=== PATIENT | female | born 1960 | race Caucasian/White ===

== ENCOUNTER 2016-04-20 14:53 | Inpatient (IN) | payer OTHER ==
--- NOTE | ~2016-04-20 | CN ---
Consultation Report [facility] [address] [place]. [address] NAME: CHARLIE MEZA : 60 STATUS : ADM IN [facility]#: [id number] AGE: 55 ADM/REG DATE : 04/20/16 MR#: [id number] REPORT SERV DATE: 04/20/16 DICTATED BY: STEFFI WELLS DATE: 04/20/16 REPORT STATUS : Draft TRANSCRIBED BY: MODMarielena DATE: 04/20/16 CONSULTATION DATE OF CONSULTATION: 04/20/2016 TIME: 1700 hours. Seen in the ER. 1830 hours. One hour critical care time. HISTORY OF PRESENT ILLNESS: Ms. Meza is a 55-year-old white female with a history of end- stage renal disease on hemodialysis, who presented today with increasing shortness of breath. She presented to the ER with increasing respiratory problems. She has some symptoms of nausea, vomiting, chills, and fever. No chest pain. She says she has had the flu recently. She is . Previous smoking history. No alcohol history. Has a history of COPD with a past medical history of hypertension, seizures, CVA, renal failure on dialysis, pancreatitis, anxiety, type 2 diabetes, thyroid disease. She has had a status post cholecystectomy, hysterectomy, and left BKA. ALLERGIES: HER ALLERGIES TO INCLUDE SULFA AND MEPERIDINE. HOME MEDICATIONS: Albuterol, amlodipine 10, hydrocodone/APAP 10/325, Keppra 250, losartan 100, Pamelor 25 which is nortriptyline, omeprazole 40, and Zofran. I do not see any anti- diabetic medications here at this time. PAST MEDICAL HISTORY: The patient does have non-insulin diabetes mellitus as well as hypothyroidism, diabetic neuropathy, diastolic heart failure. Has had previous C. diff colitis. Apparently, she is on insulin sliding scale at home. PHYSICAL EXAMINATION: VITAL SIGNS: Currently, blood pressure was 165/84, pulse 110, respiratory rate in the 30s to 40s, temperature 97.4. GENERAL: The patient is anxious-appearing female wearing BiPAP. HEENT: Head is normocephalic. Sclerae and conjunctivae are clear. Right internal jugular line. CHEST: Rhonchi throughout the right lung with wheezing. CARDIAC: S1 and S2. Tachycardic. Left lung slightly diminished. ABDOMEN: Soft and nontender. No masses. EXTREMITIES: No clubbing or cyanosis; however, she has BKA on the left. NEUROLOGIC: Grossly intact. The patient is conversant. LABORATORY DATA: Show a BNP of greater than 5000. Electrolyte panel is pending. H and H shows hemoglobin 11.9 and 36.7, white count 4900, platelet count 132,000 with 8 polys, 81 bands. She has four metamyelocytes. Platelet count was 132,000. PTT 33.5, INR 1.5. Chest x-ray shows large infiltrate on the right side. Arterial blood gas showed a pH 7.40, pCO2 of 31, pO2 of 64 on 80%. Consultation Report [address] [place]. [address] NAME: CHARLIE MEZA : 60 STATUS : ADM IN [facility]#: [id number] AGE: 55 ADM/REG DATE : 04/20/16 MR#: [id number] REPORT SERV DATE: 04/20/16 DICTATED BY: STEFFI WELLS DATE: 04/20/16 REPORT STATUS : Draft TRANSCRIBED BY: NIKOLAY DATE: 04/20/16 IMPRESSION: 1. Hypoxic respiratory failure. 2. Sepsis and severe pneumonia. 3. End-stage renal disease. 4. Peripheral vascular disease. 5. Hypothyroidism. 6. Hemodialysis dependent. 7. Non-insulin dependent diabetes mellitus. PLAN: She will require intubation and mechanical ventilation. Continue antibiotics. Monitor counts. She will be dialyzed in the morning. PROCEDURE: Inpatient intubation. INDICATION: For hypoxic respiratory failure. Pre-oxygenated 100% oxygen monitored by blood pressure, EKG, and pulse oximetry. 12 mL of Diprivan given for sedation. A 7.5 endotracheal tube passed under direct vision to 23 cm. Tube seen to enter between cords, confirmed by end-tidal CO2 monitor. Good breath sounds bilaterally. Sat 97%. Post chest x ray ordered. RP/MODL Steffi Wells M.D. / [id number] CC: Saroj Montiel M.D.
--- NOTE | ~2016-04-20 | CN ---
Consultation Report [facility] [address] [place]. [address] NAME: CHARLIE MEZA : 60 STATUS : ADM IN [facility]#: [id number] AGE: 55 ADM/REG DATE : 04/20/16 MR#: [id number] REPORT SERV DATE: 05/14/16 DICTATED BY: ARAVIND DUNNE DATE: 05/14/16 REPORT STATUS : Draft TRANSCRIBED BY: MODL DATE: 05/14/16 CONSULTATION REPORT DATE OF CONSULTATION: 05/14/2016 REASON FOR CONSULTATION: Dysphagia. HISTORY OF PRESENT ILLNESS: Ms. Meza is a 55-year-old female admitted on 04/20/2016 for dyspnea and shortness of breath. She has a history of end-stage renal disease, on hemodialysis through [facility]. She has found to have Streptococcus pneumoniae as well as influenza A. She has had progressive weakness and she subsequently developed respiratory failure to the point where she required intubation. She was recently extubated and then transferred to the floor. She had a bedside swallow study, which she failed with delayed swallow with decreased laryngeal elevation and nonproductive cough, highly suspicious for some severe aspiration. No prior problems with voice or swallowing issues prior to admission to the hospital. PAST MEDICAL HISTORY: Recurrent C. diff diarrhea; end-stage renal disease, dialysis dependent; type 2 diabetes; gastroparesis; hypertension; pancreatitis; peripheral vascular disease, status post below-knee amputation; cholecystectomy; hysterectomy; CVA; CHF; hypothyroidism; chronic pain; and chronic nausea. SOCIAL HISTORY: Disabled. No tobacco, alcohol, or illicit drug use. ALLERGIES: SULFA AND DEMEROL. PHYSICAL EXAMINATION: GENERAL: The patient is an ill appearing, cachectic white female alert and cooperative. She has a very breathy quality to her voice. HEENT: Both the ears are clear. Nose is clear. Oral cavity, oropharynx shows a normal soft and hard palate movement. Normal tongue movement. NECK: Supple. No palpable adenopathy or masses. Flexible nasal laryngoscopy at the bedside; nose and nasopharynx are clear. The oropharynx is clear. The hypopharynx shows pooling of secretions in the vallecula and the right pyriform sinus with questionable aspiration during the exam. The right true vocal cords poorly mobile and is in the lateral position with vocal cord apposition on phonation. IMPRESSION: Right true vocal cord paralysis with associated pooling in the right pyriform sinus and aspiration, possibly outside sales representative insurance of lateral medullary syndrome. RECOMMENDATIONS: The patient will be scheduled for an MRI of the brain with contrast. We will consult Neurology and follow along the patient with you. Consultation Report [place] [id number] [place]. [address] NAME: CHARLIE MEZA : 60 STATUS : ADM IN PAT#: [id number] AGE: 55 ADM/REG DATE : 04/20/16 MR#: [id number] REPORT SERV DATE: 05/14/16 DICTATED BY: ARAVIND DUNNE DATE: 05/14/16 REPORT STATUS : Draft TRANSCRIBED BY: NIKOLAY DATE: 05/14/16 TAYLOR/NIKOLAY Aravind Dunne M.D. / [id number] CC: Saroj Montiel M.D.
--- NOTE | ~2016-04-20 | OP ---
Record Of Operation [facility] [address] [place]. [address] NAME: CHARLIE BERGER : 60 STATUS : DIS IN PAT#: [id number] AGE: 55 ADM/REG DATE : 04/20/16 MR#: [id number] REPORT SERV DATE: 05/20/16 DICTATED BY: JENNIFER FIGUEREDO DATE: 05/20/16 REPORT STATUS : Draft TRANSCRIBED BY: MODL DATE: 05/20/16 DATE OF PROCEDURE: 05/20/2016 CODE BLUE SHEET PROCEDURE: Cardiopulmonary resuscitation. PREOPERATIVE DIAGNOSIS: Acute respiratory failure with hypoxia and pulseless electrical activity. POSTOPERATIVE DIAGNOSIS: Acute respiratory failure with hypoxia and pulseless electrical activity, . PROCEDURE NOTE: The patient was transferred to the CT scanner, in which she had a code blue event. It was thought to be respiratory. The emergency room responded to the code, and the patient was resuscitated promptly and intubated in the CT scanner. This occurred at 05:17 p.m. She was transferred to the CCU around 0430 hours. She had return of spontaneous circulation and no neurologic response, however. Shortly thereafter, the patient had a second code blue. This was when I was involved. At the time, Nephrology and Cardiology was in the room as they were on the floor in the CCU during the time of code blue. I arrived several minutes later as I was in the other part of the hospital. The patient had according to the physician obstetrician a VFib which transitioned to a sinus rhythm upon my arrival. At that time, the patient was in PEA, and CPR was in progress. We gave multiple rounds of epinephrine, bicarb x1, and calcium. The patient was ventilated per RT. We then evaluated the cardiac function by ultrasound. Ejection fraction was around 30%, global hypokinesis, mildly enlarged right ventricle with no tamponade. At one point in the code, the patient did go into asystole, however, had PEA shortly thereafter. After we had resuscitative efforts, a family meeting was discussed, and in that the patient's current medical status over the last week especially over last 48 hours has been deteriorating. The patient has had a second cardiac arrest. She had return of spontaneous circulation at the time of the family meeting. It was felt that the patient would not benefit from further resuscitative efforts if she did go underneath cardiopulmonary arrest again. The patient unfortunately went into PEA and bradycardia once the epinephrine and Levophed wore off. Levophed was given throughout the code and thereafter. The time at this moment in time was 0547 hours. Shortly thereafter, the patient went into a bradycardic PEA arrest. She was made DNR, an arterial blood gas showed that the pH was 7.25. Family was at the bedside, and no further resuscitative efforts were done. The patient at 06:20 p.m. with asystole with the family at the bedside. DISPOSITION: . HFQ/MODL Jennifer Moore Record Of [address] [place]. [address] NAME: CHARLIE BERGER : 60 STATUS : DIS IN PAT#: [id number] AGE: 55 ADM/REG DATE : 04/20/16 MR#: [id number] REPORT SERV DATE: 05/20/16 DICTATED BY: JENNIFER FIGUEREDO DATE: 05/20/16 REPORT STATUS : Draft TRANSCRIBED BY: MODMarielena DATE: 05/20/16 MD [place]erson / [id number] CC: Saroj Montiel M.D.
--- NOTE | ~2016-04-20 | CN ---
Consultation Report [facility] [address] [place]. [address] NAME: CHARLIE BERGER : 60 STATUS : ADM IN [facility]#: [id number] AGE: 55 ADM/REG DATE : 04/20/16 MR#: [id number] REPORT SERV DATE: 05/09/16 DICTATED BY: CORWIN ADEN DATE: 05/09/16 REPORT STATUS : Draft TRANSCRIBED BY: MODL DATE: 05/09/16 SURGICAL CONSULTATION DATE OF CONSULTATION: 05/09/2016 REASON FOR CONSULTATION: Need for enteral access. HISTORY OF PRESENT ILLNESS: This 55-year-old female was admitted on 04/20/2016 for dyspnea and shortness of breath. She has a past medical history for end-stage renal disease with hemodialysis through a chronic IJ PermCath. She was admitted to the hospital with progressive dyspnea and was found to have Streptococcus pneumoniae as well as influenza A. She has progressive weakness, and enteral nutrition was recommended. The patient had an upper midline incision for cholecystectomy in the past. She was seen by Gastroenterology, who did not feel that the patient was a candidate in light of her diabetic gastroparesis. She now has a recurrent C diff colitis with diarrhea as well. We were asked to see the patient for surgical jejunostomy. PAST MEDICAL HISTORY: As above with diabetes mellitus type 2, peripheral artery disease, and congestive heart failure. PAST SURGICAL HISTORY: Left gfosx-trz-xhsz amputation, cholecystectomy, hysterectomy, and vascular access. FAMILY HISTORY: Negative for colon cancer or polyps. SOCIAL HISTORY: The patient is disabled. She denies alcohol, tobacco, or illicit drug usage. Her is at the bedside. ALLERGIES: SULFA AND DEMEROL. MEDICATIONS: Please see hospital chart. REVIEW OF SYSTEMS: No current chest pain, shortness of breath, dyspnea on exertion, abdominal pain, bright red blood per rectum, or melena. PHYSICAL EXAMINATION: GENERAL: Cachectic female, in no apparent distress on the ventilator. She is awake and alert. NECK: Supple. No adenopathy. CARDIOVASCULAR: Regular rate and rhythm. RESPIRATORY: Clear to auscultation. ABDOMEN: Soft, nondistended, cachectic. She has a well-healed upper midline incision. BACK: No CVA tenderness. Consultation Report [facility] [address] [place]. [address] NAME: CHARLIE BERGER : 60 STATUS : ADM IN [facility]#: [id number] AGE: 55 ADM/REG DATE : 04/20/16 MR#: [id number] REPORT SERV DATE: 05/09/16 DICTATED BY: CORWIN ADEN DATE: 05/09/16 REPORT STATUS : Draft TRANSCRIBED BY: NIKOLAY DATE: 05/09/16 EXTREMITIES: The patient has a left BKA. There is no edema. LABORATORY DATA: Please see hospital chart. ASSESSMENT: 1. Dysphagia, status post prolonged intubation. 2. Malnutrition. 3. Acute respiratory failure with ventilator requirement. 4. Atrial fibrillation with rapid ventricular response. 5. End-stage renal disease secondary to diabetes mellitus with hemodialysis. 6. Recurrent Clostridium difficile colitis. 7. Diabetes mellitus type 2 with gastroparesis. PLAN: The patient will undergo open jejunostomy. The patient and are aware of the risks, including bleeding, infection, poor cosmetic result, chronic pain, injury to intra- abdominal and retroperitoneal structures, as well as leak at the jejunostomy site with peritonitis and wished to proceed. /NIKOLAY Corwin Aden M.D. / [id number] CC: Saroj Montiel M.D.
--- NOTE | ~2016-04-20 | OP ---
Record Of Operation [facility] [address] [place]. [address] NAME: CHARLIE BERGER : 60 STATUS : ADM IN [facility]#: [id number] AGE: 55 ADM/REG DATE : 04/20/16 MR#: [id number] REPORT SERV DATE: 05/06/16 DICTATED BY: RAGHU PORTILLO IV DATE: 05/06/16 REPORT STATUS : Draft TRANSCRIBED BY: MODMarielena DATE: 05/06/16 DATE OF PROCEDURE: 05/06/2016 REPORT TITLE: Laryngoscopic Intubation Note BODY AFTER REPORT TITLE: PREOPERATIVE DIAGNOSIS: Hypoxemic respiratory failure. POSTOPERATIVE DIAGNOSIS: Hypoxemic respiratory failure. PROCEDURE: Laryngoscopic intubation with ventilator setup and placement of an orogastric tube. INDICATIONS: Primary respiratory arrest with agonal respiratory efforts. CONTRAINDICATIONS: None. CONSENT: No consent is obtained to lifesaving procedure and the patient is a full code. DURAL MECHANIC: Raghu Portillo M.D. METHOD: The patient had a Code Blue called and did have a thready pulse at the time of presentation with electrical activity. She was being assist ventilated. All equipment was made available. I took position at the head of the bed. 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 Using a curved laryngoscopic blade, the vocal cords were easily visualized. A #7.5 endotracheal tube was advanced through the cords without difficulty. It was suggested to be secured at 20 cm, however, and taping was slipped down to 22 cm. There was a positive color change, though when I listened to the patient, there were decreased breath sounds on the left more than the right. The tube was pulled back to 20 cm. There were better bilateral breath sounds with audible rhonchi. There was no blood loss. The chest x-ray demonstrated the tube to be still about a centimeter below the head of the clavicle, so it was pulled back to 19 cm. There was no blood loss. After the tube was secured, the orogastric tube was advanced without difficulty with good position in the gut. There was no blood loss for this procedure as well. The patient tolerated both procedures well with excellent oxygen saturations. DAREK/NIKOLAY Raghu Portillo IV, M.D. / [id number] Record Of [place] [address] [place]. [address] NAME: CHARLIE BERGER : 60 STATUS : ADM IN PAT#: [id number] AGE: 55 ADM/REG DATE : 04/20/16 MR#: [id number] REPORT SERV DATE: 05/06/16 DICTATED BY: RAGHU PORTILLO IV DATE: 05/06/16 REPORT STATUS : Draft TRANSCRIBED BY: NIKOLAY DATE: 05/06/16 CC: Raghu Montiel M.D.
--- NOTE | ~2016-04-20 | CN ---
Consultation Report [facility] [address] [place]. [address] NAME: CHARLIE MEZA : 60 STATUS : ADM IN PAT#: [id number] AGE: 55 ADM/REG DATE : 04/20/16 MR#: [id number] REPORT SERV DATE: 05/06/16 DICTATED BY: REYNA JENKINS DATE: 05/06/16 REPORT STATUS : Draft TRANSCRIBED BY: MODMarielena DATE: 05/06/16 GI CONSULTATION DATE OF CONSULTATION: 05/06/2016 REASON FOR CONSULTATION: Evaluation and management of the patient for PEG tube placement secondary to dysphagia. HISTORY OF PRESENT ILLNESS: Ms. Meza is a 55-year-old female patient, known to our group, who presented to [facility] on 04/20 with a chief complaint of dyspnea and shortness of breath. She has a history of end-stage renal disease, undergoing dialysis on Tuesday, Tuesday, and Tuesday through a chronic IJ PermCath, as well as she has a right upper arm fistula with history of multiple thrombotic events. She came in after dialysis on 04/20 for shortness of breath and was placed on a non-rebreather. Because she had an increased work of breathing, she was put on BiPAP and subsequently was intubated and found to have strep pneumonia as well as influenza A. she has subsequently been extubated. She has dysphagia. She was evaluated on 05/03 by Speech Therapy, who recommended n.p.o., alternative means of nutrition with reassessment of the patient in a few days to see if she regained some muscle tone/control for swallowing. The patient has significant tachypnea by assessment, she has notable rhonchi, and she is mouth breathing. She appears chronically ill, as well as acutely ill. I have discussed the case with Codi Casanova, nurse practitioner with [facility]. I do not feel the patient at this time is an adequate candidate for a PEG tube secondary to her respiratory status. She also has a history of diabetic gastroparesis, which is a relative contraindication to a PEG. She would possibly need a PEG-J tube. I have discussed with the patient as well as the patient's we will plan to place a Dobbhoff tube post-pylorus for feeding and medication administration, and hopefully, she can repeat a swallow evaluation in a few days with improvement in her swallow function. PAST MEDICAL HISTORY: Positive for recurrent C diff diarrhea; end-stage renal disease, dialysis dependent; type 2 diabetes; gastroparesis secondary to diabetes; hypertension; pancreatitis; peripheral vascular disease, she is status post left eszbs-cyc-gwnj amputation; cholecystectomy; hysterectomy; CVA; CHF; hypothyroidism; chronic pain; and chronic nausea. FAMILY HISTORY: Noncontributory from a GI standpoint. SOCIAL HISTORY: Disabled. No alcohol, tobacco, or illicit use. ALLERGIES: LISTED TO SULFA AND DEMEROL. HOME MEDICATIONS: Albuterol, Norvasc, [place], Keppra, Cozaar, Pamelor, Prilosec, and Zofran. REVIEW OF SYSTEMS: Consultation Report [place] [id number] [facility] [place]. [address] NAME: CHARLIE MEZA : 60 STATUS : ADM IN [facility]#: [id number] AGE: 55 ADM/REG DATE : 04/20/16 MR#: [id number] REPORT SERV DATE: 05/06/16 DICTATED BY: REYNA EJNKINS DATE: 05/06/16 REPORT STATUS : Draft TRANSCRIBED BY: NIKOLAY DATE: 05/06/16 A 10-point review of systems obtained, pertinent positives addressed in the history of present illness. PERTINENT LABORATORY DATA: Sodium 147, potassium 4.5, BUN 32, creatinine 2.49. White count 14.4, hemoglobin 8.2, hematocrit 26.1, platelet count 157. An INR of 1.5. Chest x-ray dated 05/06 shows stable bilateral infiltrates or edema, right greater than left; bibasilar atelectasis and/or pleural fluid, left greater than right; no significant change in previous study. PHYSICAL EXAMINATION: VITAL SIGNS: Temperature 98.9, pulse 97, respirations 28, and blood pressure is 116/78. NEURO: Reveals a chronically ill-appearing/acutely ill-appearing female, resting in bed, who awakens to name. GENERAL: She is cooperative. She is in distress secondary to shortness of breath and tachypnea. HEAD, EARS, EYES, NOSE, AND THROAT: Anicteric. Pupils equal, round, reactive to light and accommodation. Normocephalic and atraumatic. NECK: No JVD. No palpable nodes. LUNGS: She has notable rhonchi. She is mouth breathing. She has tachypnea with respiratory rate on my assessment of 33. CARDIOVASCULAR SYSTEM: Atrial fibrillation with RVR. ABDOMEN: Soft, nondistended, nontender with active bowel sounds. No organomegaly appreciated. EXTREMITIES: Left efqmi-ufs-mser amputation. She has notable swelling in bilateral upper extremities. SKIN: Pale and ashen, dry and intact. ASSESSMENT: 1. Dysphagia status post prolonged intubation. 2. Status post acute respiratory failure on the ventilator for multiple days as well as strep pneumonia and influenza A. 3. Atrial fibrillation with rapid ventricular response. 4. End-stage renal disease, hemodialysis dependent. 5. History of Clostridium difficile recurrence. 6. Diabetes type 2 with gastroparesis. 7. Chronic obstructive pulmonary disease. PLAN: 1. Dobbhoff tube for feedings post-pylorus. 2. Nutrition consult for tube feeding recommendations. 3. We will follow along. DG/MODL Consultation Report [address] [place]. [address] NAME: CHARLIE MEZA : 60 STATUS : ADM IN PAT#: [id number] AGE: 55 ADM/REG DATE : 04/20/16 MR#: [id number] REPORT SERV DATE: 05/06/16 DICTATED BY: REYNA JENKINS DATE: 05/06/16 REPORT STATUS : Draft TRANSCRIBED BY: NIKOLAY DATE: 05/06/16 JOSE Dalton / [id number] CC: Saroj Montiel M.D.
--- NOTE | ~2016-04-20 | CN ---
Consultation Report [id number] [facility] [place]. [address] NAME: CHARLIE MEZA : 60 STATUS : ADM IN [facility]#: [id number] AGE: 55 ADM/REG DATE : 04/20/16 MR#: [id number] REPORT SERV DATE: 04/24/16 DICTATED BY: BRAXTON LEDESMA DATE: 04/24/16 REPORT STATUS : Draft TRANSCRIBED BY: MODL DATE: 04/24/16 CARDIOVASCULAR CONSULTATION DATE OF CONSULTATION: This is a cardiovascular consultation, requested by Dr. Kirk yang. INDICATION: Atrial fibrillation. HISTORY OF PRESENT ILLNESS: Ms. Meza is a 55-year-old woman with a history of end-stage renal disease, on hemodialysis. She presented to the emergency room with increasing dyspnea and developed subsequent respiratory failure and sepsis syndrome. She was found to be influenza positive. She has additional issues of possible secondary bacterial pneumonia. She is currently on a ventilator and underwent hemodialysis yesterday. In that setting, she developed atrial fibrillation/atrial flutter, atypical with rapid rate. Her hemodynamics have been stable. She is not on pressors. IV amiodarone and subsequently IV Cardizem were started. Heart rate still in the 120s and irregular. I was consulted for further management. PAST MEDICAL HISTORY: 1. End-stage renal disease, on hemodialysis. 2. COPD. 3. Hypertension. 4. Strokes. 5. Type 2 diabetes. 6. Hypothyroidism. 7. Status post cholecystectomy and hysterectomy. ALLERGIES: INCLUDE SULFA AND MEPERIDINE. MEDICATIONS ON ADMISSION: Include albuterol inhaler, Norvasc 10 mg daily, hydrocodone, Keppra, Cozaar 100 mg daily, nortriptyline, Prilosec, and Zofran. SOCIAL HISTORY: She does not smoke or drink alcohol. FAMILY HISTORY: There is no family history of early coronary artery disease. REVIEW OF SYSTEMS: A complete review of systems could not be obtained because the patient is intubated and sedated. PHYSICAL EXAMINATION: VITAL SIGNS: Blood pressure 110/60, heart rate of 120 and irregular, respiratory rate of 14, on the ventilator. GENERAL: Comfortable in no acute distress. Consultation Report [address] [address] [id number] [facility] [place]. [address] NAME: CHARLIE MEZA : 60 STATUS : ADM IN PAT#: [id number] AGE: 55 ADM/REG DATE : 04/20/16 MR#: [id number] REPORT SERV DATE: 04/24/16 DICTATED BY: BRAXTON LEDESMA DATE: 04/24/16 REPORT STATUS : Draft TRANSCRIBED BY: NIKOLAY DATE: 04/24/16 HEENT: Anicteric. No xanthelasma. Lips without cyanosis. NECK: No JVD. Carotids 2+ and symmetric. No carotid bruits. LUNGS: CTA bilaterally. No wheezes or rhonchi. No accessory muscle use. CARDIAC: Tachycardic. Irregularly irregular. Normal S1, S2. ABD: Soft, nontender, nondistended. Normal bowel sounds. No abdominal bruits. EXT: No clubbing, cyanosis or edema 2+ and symmetric distal pulses. SKIN: Warm. Dry. No venous stasis changes. MS: No kyphosis. NEURO/PSYCH: Oriented x3. No anxiety or depression. LABORATORY STUDIES: Hematocrit of 31. Creatinine drawn yesterday at 4.99. EK-lead EKG shows atypical atrial flutter, rate of 148 beats per minute. Nonspecific T-wave abnormalities noted. Poor R-wave progression noted. IMPRESSION: This is a 55-year-old woman with multiple medical problems including end-stage renal disease, chronic obstructive pulmonary disease, diabetes , hypertension, and hypercholesterolemia. In this setting, she has developed influenza and acute respiratory failure, on ventilator. There is concern about sepsis syndrome and secondary bacterial infection. She is quite ill. In this setting, she has developed atrial fibrillation/atypical atrial flutter at a rapid rate. I have recommended IV Cardizem to be increased after a 10 mg bolus to a total dose of 20 mg per hour. She will remain on IV amiodarone at a dose of 1 mg per minute. I would not cardiovert her unless she gets hemodynamically unstable. ELIDIA/NIKOLAY Braxton Ledesma M.D. / [id number] CC: Saroj Montiel M.D.
--- NOTE | ~2016-04-20 | HP ---
History And Physical [address] [place]. [address] NAME: CHARLIE MEZA : 60 STATUS : ADM IN [facility]#: [id number] AGE: 55 ADM/REG DATE : 04/20/16 MR#: [id number] REPORT SERV DATE: 04/20/16 DICTATED BY: RAGHU ALEJANDRA DATE: 04/20/16 REPORT STATUS : Draft TRANSCRIBED BY: MODMarielena DATE: 04/20/16 DATE OF ADMISSION: 04/20/2016 CHIEF COMPLAINT: Dyspnea. HISTORY OF PRESENT ILLNESS: Ms. Meza is a 55-year-old white female with ESRD, dialyzing at the [facility], Tuesday, Tuesday, Tuesday through a chronic IJ PermCath. She has a right upper arm fistula, which has had multiple thrombotic events in the past. She came in after going to dialysis yesterday with dyspnea. She was placed on a non-rebreather face mask and an ABG showed a pH of 7.40, PaCO2 of 31, and a PaO2 of 63. Because of increased work of breathing, she was placed on BiPAP, and Nephrology was called for admission. She has been a very difficult stick. Her BNP is presently pending at the time of dictation. Her white count was 4900 with 89% segmented neutrophils, INR 1.5, and a BNP greater than 5000. PAST MEDICAL HISTORY: 1. ESRD, at [facility], [facility], MWF, left BKA. 2. Hypertension. 3. Hypothyroidism. 4. History of recurrent C. diff colitis. 5. Chronic pain. 6. History of stroke. 7. History of pancreatitis. 8. 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 9. History of seizures. 10.Anemia. MEDICATIONS: Unavailable at the time of this dictation. FAMILY HISTORY: Could not be obtained due to the patient's current condition on BiPAP. SOCIAL HISTORY: Could not be obtained due to the patient's current condition on BiPAP. REVIEW OF SYSTEMS: Could not be obtained due to the patient's current condition on BiPAP. PHYSICAL EXAMINATION: VITAL SIGNS: Temperature 97.4, pulse 110, respirations 38, blood pressure 165/84, and she is 94% sat on 100% BiPAP. GENERAL: This is a chronically ill white female, middle aged, awake and alert, on BiPAP. She has diffuse rhonchi with tachypnea and dyspnea. She is tachycardic with a regular rhythm. 2/6 murmur. ABDOMEN: Soft, nontender, nondistended. Bowel sounds present throughout. No rebound or guarding. She has a left BKA with 1+ right pitting lower extremity edema. She has bruise and thrill on a right upper arm fistula. Her IJ PermCath bandages are clean, dry, and intact. She has a right IJ triple-lumen catheter in place. History And Physical [id number] [place] [place]. [address] NAME: CHARLIE MEZA : 60 STATUS : ADM IN [facility]#: [id number] AGE: 55 ADM/REG DATE : 04/20/16 MR#: [id number] REPORT SERV DATE: 04/20/16 DICTATED BY: RAGHU ALEJANDRA DATE: 04/20/16 REPORT STATUS : Draft TRANSCRIBED BY: MODMarielena DATE: 04/20/16 LABORATORY DATA: White count 4.9, hemoglobin 11.9, BNP over 5000. Basic metabolic profile pending. ASSESSMENT/PLAN: Ms. Meza has end-stage renal disease, presents with severe pneumonia, hypoxia, respiratory failure, and anemia, left BKA, hypertension, hypothyroidism. She will be admitted to the ICU under the Renal Service. I discussed case with Dr. Wells of Critical Care Medicine. She will likely require intubation later tonight for increased work of breathing and hypoxia. Vancomycin and Levaquin will be given in the emergency room, IV steroids, nebulizers, and pulmonary toilet, etc. Followup labs when available. Hold off on dialysis tonight and plan dialysis with aggressive UF tomorrow as tolerated. Continue supportive care. Protect right arm. Follow up labs. ESE/JOAOL Raghu Alejandra M.D. / [id number] CC: Raghu Alejandra M.D.
--- NOTE | ~2016-04-20 | DS ---
Discharge Summary [address] [place]. [address] NAME: CHARLIE MEZA : 60 STATUS : DIS IN PAT#: [id number] AGE: 55 ADM/REG DATE : 04/20/16 MR#: [id number] REPORT SERV DATE: 05/22/16 DICTATED BY: COLIN CHOUDHARY DATE: 05/21/16 REPORT STATUS : Draft TRANSCRIBED BY: MODMarielena DATE: 05/21/16 ADMISSION DATE: 04/20/2016 DISCHARGE DATE: 05/20/2016 This is a note. ADMISSION DIAGNOSES: 1. Acute respiratory failure in the setting of pneumonia. 2. End-stage renal disease. 3. Left below-knee amputation. 4. Hypothyroidism. DISCHARGE DIAGNOSES: 1. Acute respiratory failure in the setting of influenza and strep pneumonia. Intubated on three occasions during this hospitalization. 2. Aspiration of pneumonia in the setting of severe diabetic gastroparesis. 3. Atrial fibrillation, atrial flutter. 4. Dysphagia with paralyzed right vocal cord (Dr. Anthony). 5. Critical myopathy. 6. Chronic obstructive pulmonary disease. 7. Recurrent C. diff. 8. Hypothyroidism. 9. End-stage renal disease with chronic IJ PermCath. CONSULTATIONS: 1. Braxton Burger M.D., Cardiology for atrial fibrillation and flutter on 04/24/2016. 2. Gastroenterology for dysphagia on 05/06/2016. 3. Neurology consult for critical myopathy. 4. ENT, Dr. Anthony with right true vocal cord paralysis. 5. Dr. Rust for evaluation and management of surgical intervention of diabetic gastroparesis for feeding tube. 6. Critical Care. IMAGIN. CT of the chest with bilateral pulmonary infiltrates completed on 04/20/2016. 05/14/2016 MRI completed which did not show any evidence of CVA. 2. Abdominopelvic CT scan completed on 05/20/2016 that showed mild diffuse thickening of the colon which may represent mild diffuse colitis. There is no bowel obstruction noted. Trace ascites. There is moderate left and right pleural effusions. Diffuse anasarca. 3. Open jejunostomy on 05/14/[address] Rust. HPI: Ms. Meza is a 55-year-old white female, significant past medical history of ESRD, diabetes, recurrent C. diff, hypothyroidism, presented status post hemodialysis with complaints of dyspnea. On presentation, she was on non-rebreather and placed on facemask. Discharge Summary [address] [address] NAME: CHARLIE MEZA : 60 STATUS : DIS IN PAT#: [id number] AGE: 55 ADM/REG DATE : 04/20/16 MR#: [id number] REPORT SERV DATE: 05/22/16 DICTATED BY: COLIN CHOUDHARY DATE: 05/21/16 REPORT STATUS : Draft TRANSCRIBED BY: NIKOLAY DATE: 05/21/16 HOSPITAL COURSE: The patient has had a prolonged and complicated hospital course from 04/20/2016 to 05/20/2016. As mentioned above, the patient was initially admitted for acute respiratory failure in the setting of influenza and strep pneumonia. She required intubation. During her hospital course, she required 3 separate intubations. The patient was intubated on arrival. She was extubated, had to be reintubated, and she was most recently intubated within 48 hours of her due to aspiration. The patient was placed on antibiotic therapy for her strep pneumonia. She was seen by critical care for overall management while she was in the ICU. She was seen by Neuro due to concerns of diffuse weakness and right true vocal cord paralysis. The patient was thought perhaps to may have myasthenia gravis as we placed her on trial medications with lab drawn. After further evaluation, it was felt that the patient just had critical myopathy. The patient has a history of diabetes with severe diabetic gastroparesis. With her acute and comorbid conditions, Gastroenterology did not feel like they could place a PEG tube for tube feedings. As a result, Dr. Rust was consulted for further evaluation and management. He completed open jejunostomy on 05/04/2016. Tube feedings were initiated without complications. The patient was on Vancocin for recurrent C. diff. Within 24 hours to 36 hours of her , she started having bilious vomiting. The patient on initial rapid response had suctioning place with approximately 750 mL of bilious fluid removed. The patient was transferred to the ICU at this time for further evaluation and management of recurrent acute respiratory failure-hypoxia. The patient remained on 6 L nasal cannula oxygen. An OG tube was placed and she was found to have approximately 3 L of bilious fluid, completed. She does have a history of severe diabetic gastroparesis. A KUB was obtained at this time. There is no dilated bowel. Chest x-ray revealed increasing pulmonary edema consistent with aspiration. She was later taken down for abdominopelvic CT scan without contrast. There are no signs of obstruction. After completing her abdominopelvic CT scan she went into acute respiratory failure followed by PEA. The patient was intubated and coded by ACLS protocol. Please see Code Blue notes for further details. The patient was transferred back up to the CCU. The patient continued to have cardiac arrhythmia issues along with progressive hypotension. The patient was coded for over 30 minutes upstairs in the CCU. Critical care was at bedside running the code. Please see Code Blue sheets. Unfortunately, the patient continued to become more hypotensive, bradycardic, and then despite ACLS interventions for greater than 30 minutes. updated at bedside with sympathies expressed. BIANCA/MODMarielena Colin Choudhary M.D. / [id number] CC: Saroj Montiel M.D.
--- NOTE | ~2016-04-20 | OP ---
Record Of Operation [facility] [address] [place]. [address] NAME: CHARLIE BERGER : 60 STATUS : ADM IN [facility]#: [id number] AGE: 55 ADM/REG DATE : 04/20/16 MR#: [id number] REPORT SERV DATE: 05/09/16 DICTATED BY: CORWIN ADEN DATE: 05/09/16 REPORT STATUS : Draft TRANSCRIBED BY: MODMarielena DATE: 05/09/16 DATE OF PROCEDURE: 05/10/2016 PREOPERATIVE DIAGNOSES: 1. Need for enteral access. 2. Malnutrition. 3. Prolonged intubation secondary to respiratory failure. 4. Coagulopathy. 5. End-stage renal disease secondary to diabetes mellitus type 2 with hemodialysis. POSTOPERATIVE DIAGNOSES: 1. Need for enteral access. 2. Malnutrition. 3. Prolonged intubation secondary to respiratory failure. 4. Coagulopathy. 5. End-stage renal disease secondary to diabetes mellitus type 2 with hemodialysis. PROCEDURE: Open jejunostomy. ANESTHESIA: General. SURGEON: Corwin Aden M.D. DIRECTOR OF ONLINE EDUCATION: Isidro. COMPLICATIONS: None. DRAINS: None. ESTIMATED BLOOD LOSS: 20 mL. OPERATIVE TECHNIQUE: The patient was brought to the operating room and placed on the table in supine position. She had antibiotics per schedule. She underwent general endotracheal anesthesia and was prepped and draped in a sterile fashion and time-out was completed. A 15 blade knife was used to make an upper midline incision to the base of the umbilicus. The abdomen was then entered and there was no evidence of any significant adhesions. The transverse colon was elevated and the ligament of Treitz was identified. Approximately 20 cm distal to this, the small bowel was identified on the antimesenteric border and a pursestring silk suture was placed with 3-0 silk. The enterotomy was then made after the jejunostomy tube was brought into the abdomen through a stab incision in the left upper quadrant. The tube was then inserted and advanced distally approximately 20 cm. It was advanced past the bulb and the bulb was inflated with fluid. The pursestring was then closed. A Witzel tunnel was then created at the jejunostomy insertion site using interrupted 3-0 Vicryl sutures. The catheter was then noted to flush with good distal flow without a leak. The jejunostomy bowel segment was then brought up to the anterior abdominal wall and closed with three interrupted Vicryl sutures at the insertion site, reapproximated Record Of Operation [id number] [place]. [address] NAME: CHARLIE BERGER : 60 STATUS : ADM IN PAT#: [id number] AGE: 55 ADM/REG DATE : 04/20/16 MR#: [id number] REPORT SERV DATE: 05/09/16 DICTATED BY: CORWIN ADEN DATE: 05/09/16 REPORT STATUS : Draft TRANSCRIBED BY: NIKOLAY DATE: 05/09/16 the bowel through the abdominal wall. The small bowel was then tacked to the anterior abdominal wall for the length of the Witzel tunnel to prevent torsion. The catheter was then secured to the skin at the level of the ring and the fascia was closed using a running looped PDS suture. Of note, the patient had a significant amount of free ascitic fluid that was aspirated prior to the procedure beginning. Approximately, 500 mL was aspirated. There was no evidence of any bleeding at the end of the procedure. The subcutaneous tissue was then thoroughly irrigated. The skin edges were reapproximated using running subcuticular Monocryl suture. Dermabond was applied and sterile dressings were applied. She was taken to the intensive care unit in critical condition. SUSAN/NIKOLAY Corwin Aden M.D. / [id number] CC: Saroj Montiel M.D.
--- NOTE | ~2016-04-20 | CN ---
Consultation Report [facility] [address] [place]. [address] NAME: CHARLIE BERGER : 60 STATUS : DIS IN PAT#: [id number] AGE: 55 ADM/REG DATE : 04/20/16 MR#: [id number] REPORT SERV DATE: 05/21/16 DICTATED BY: CORWIN ADEN DATE: 05/21/16 REPORT STATUS : Draft TRANSCRIBED BY: NIKOLAY DATE: 05/21/16 SURGICAL CONSULTATION DATE OF CONSULTATION: 05/20/2016 REASON FOR CONSULTATION: Nausea and vomiting. HISTORY OF PRESENT ILLNESS: This 55-year-old female was admitted on 04/20/2016. I was asked to see the patient on 05/09/2016 for enteral access. At that time, she was a 55-year-old female who was admitted for dyspnea and shortness of breath. She had a significant past medical history including end-stage renal disease with hemodialysis through her chronic PermCath. She had progressive dyspnea and was found to have Streptococcus pneumoniae as well as influenza A. She had progressive weakness and profound malnutrition. She has a long history of diabetes mellitus with gastroparesis and for that reason, was not felt to be a candidate for a PEG tube. She underwent surgical jejunostomy and has been tolerating tube feeds. She has been treated for recurrent C difficile colitis as well. She was on the floor and was noted to have a large amount of nausea and vomiting with aspiration. Upon examination today, the patient has significant rhonchi and rales in the right chest and significant inflammation on the right chest on chest x-ray. She was in the ICU. Her abdomen is soft, nondistended, and nontender. The J-tube entrance site is clean, dry, intact and the incision is clean as well. There is no hernia. On exam, her abdomen is soft. We were asked to see the patient for possible bowel obstruction. I feel that most likely this is nausea and vomiting, it was related to her gastroparesis versus bowel obstruction based on physical exam. PAST MEDICAL HISTORY: As above with diabetes mellitus type 2, peripheral arterial disease, and congestive heart failure. PAST SURGICAL HISTORY: Left [id number] amputation, cholecystectomy, hysterectomy, vascular access, and open jejunostomy. FAMILY HISTORY: Negative for colon cancer or polyps. SOCIAL HISTORY: The patient is disabled. She denies alcohol, tobacco, or illicit drug usage. ALLERGIES: SULFA AND DEMEROL. MEDICATIONS: Please see hospital chart. REVIEW OF SYSTEMS: The patient has shortness of breath. She has some dyspnea on exertion. She has rales. She has no abdominal pain, bright red blood per rectum, melena, or change in the caliber of her stools. Consultation Report [id number] [facility] [place]. [address] NAME: CHARLIE BERGER : 60 STATUS : DIS IN PAT#: [id number] AGE: 55 ADM/REG DATE : 04/20/16 MR#: [id number] REPORT SERV DATE: 05/21/16 DICTATED BY: CORWIN ADEN DATE: 05/21/16 REPORT STATUS : Draft TRANSCRIBED BY: NIKOLAY DATE: 05/21/16 PHYSICAL EXAMINATION: GENERAL: Ill-appearing female with dyspnea. NECK: Supple. No adenopathy. CARDIOVASCULAR: Regular rate and rhythm. RESPIRATORY: The patient has bilateral wheezing and rales, right much greater than left. ABDOMEN: Soft, nondistended, nontender. She is cachectic. She has a healed upper midline incision and jejunostomy entrance site. EXTREMITIES: The patient has a well-healed left BKA. LABORATORY DATA: Please see hospital chart. ASSESSMENT: 1. Nausea, vomiting, and aspiration, most likely secondary to gastroparesis versus small- bowel obstruction. 2. Status post feeding jejunostomy for severe protein-calorie malnutrition. 3. Acute respiratory failure after aspiration. 4. Atrial fibrillation with rapid ventricular response in the past. 5. End-stage renal disease with hemodialysis secondary to diabetes mellitus. 6. Recurrent Clostridium difficile colitis. 7. Diabetes mellitus type 2 with gastroparesis. PLAN: At this time, I would order a CT scan to rule out small-bowel obstruction after the jejunostomy. Based on plain film imaging with ability to see the jejunal tube and the bowel gas pattern, it is unlikely, and most likely the reason for her aspiration was gastroparesis. She has a poor prognosis at this time and we will continue to follow with you. SUSAN/NIKOLAY Corwin Aden M.D. / [id number] CC: Saroj Montiel M.D.
[~2016-04-20 14:53] MED LIST: *UNABLE2; ACET500CAP PO; AMOXIL500C PO; APRES25 PO; ASA5GR PO; ASABAYER PO; BEN25 PO; BENTYL10 PO; BENTYL20 PO; COREG12 PO; COREG6 PO; COZAAR100 MG PO; CRESTOR20 MG PO; DURICEF PO; ERY-TAB250 MG PO; FIORICET PO; FLAG500TAB PO; FLORASTOR250 MG PO; HCTZ25B PO; HUMALOG SC; HYDROCHLOROT12.5 MG PO; IMOD PO; K500 PO; KEPPRA250 PO; L20 PO; LANTUS; LANTUS SC; LEVAQUIN5T PO; LEVOTHYROXIN75 MCG PO; LIDODERM T; LIDODERM TOP; LIPITOR40 PO; LISINOPRIL40 MG PO; MIRALAXPKT PO; NEUR300 PO; NORCO1 TAB PO; NORV10 PO; NOVOLOG SC; P10 PO; PERCOCET1 TA4 PO; PHOSLO PO; PR25 PO; PRILOSEC40 MG PO; PRIN10 PO; PROAIR HFA INH; PROTONIX PO; PROVHFA INH; QUESLITE PO; QUESTRAN4 GM PO; REG PO; REG5 PO; SYN075 PO; SYN88 PO; TUMSROLL PO; VANCOCIN HCL125 MG PO; VANCOCIN HCL250 MG PO; X5 PO; XANAX1 MG PO; Z-PAK PO; ZESTRIL40 MG PO; ZOFRAN ODT4 MG PO; ZOFRAN4 PO
[2016-04-20 16:23] LABS: BASOPHILS 0.2 %; BASOPHILS ABSOLUTE 0.01 10/3/uL (0.0-0.16); EOSINOPHILS 1.6 %; EOSINOPHILS ABSOLUTE 0.08 10/3/uL (0.0-0.53); ER CBC TAT 0 Hrs 07 Mins; HEMATOCRIT 36.7 % (36.0-48.0); HEMOGLOBIN 11.9 g/dL (12.0-16.0); IMMATURE GRANULOCYTES 1.8 %; IMMATURE GRANULOCYTES ABSOLUTE 0.09 10/3/uL (0.0-0.11); LYMPHOCYTES 7.5 %; LYMPHOCYTES ABSOLUTE 0.37 10/3/uL (0.67-4.30); MEAN CORPUS HGB CONC 32.4 g/dL (32.0-36.0); MEAN CORPUSCULAR HEMOGLOB 30.2 pg (26.0-34.0); MEAN CORPUSCULAR VOLUME 93.1 fL (80-100); MEAN PLATELET VOLUME 11.1 fL (9.2-13.0); MONOCYTES 0.2 %; MONOCYTES ABSOLUTE 0.01 10/3/uL (0.21-1.20); NEUTROPHILS 88.7 %; NEUTROPHILS ABSOLUTE 4.38 10/3/uL (2.02-8.40); RBC DISTRIBUTION WIDTH 15.2 % (12.0-16.0); RED CELL COUNT 3.94 10/6/uL (4.0-5.6); WHITE BLOOD CELLS 4.9 10/3/uL (4.5-10.5)
[2016-04-20 16:25] LABS: MANUAL DIFF NO %; PLATELET COUNT 132 10/3/uL (150-400)
[2016-04-20 16:32] LABS: INTERNATIONAL NORMAL RATI 1.5 UNITS (-); PARTIAL THROMBO TIME 33.5 SEC (22.5-37.2); PROTIME (NOT ORD) 18.1 SEC (12.0-14.5)
[2016-04-20 16:48] LABS: ER DIFF TAT 0 Hrs 32 Mins; SEGMENTED NEUTROPHIL (0) 8 %; TOTAL NUCLEATED CELLS 100
[2016-04-20 16:52] LABS: BAND NEUTROPHILS 81 %; LYMPHOCYTES 5 %; LYMPHOCYTES ABSOLUTE (CALC) 0.25 10/3/uL (0.67-4.30); METAMYELOCYTES 4 %; MONOCYTES 2 %; NEUTROPHILS ABSOLUTE (CALC) 4.36 10/3/uL (2.02-8.40)
[2016-04-20 16:53] LABS: POIKILOCYTOSIS 1+ (5-10/OIF) (0-5/OIF)
[2016-04-20 16:54] LABS: BURR CELLS 1+ (3-10/OIF) (0-2/OIF)
[2016-04-20 16:55] LABS: PLATELET ESTIMATE SLT DEC (ADEQUATE)
[2016-04-20 17:14] LABS: BE (BASE EXCESS) -4.8 MEQ/L (0 +/- 2.5); INSTRUMENT SERIAL # 8087; PCO2 (CO2 TENSION) 31 MMHG (35-45); PO2 (O2 TENSION) 64 MMHG (79-93)
[2016-04-20 17:15] LABS: CARBOXYHEMOGLOBIN 1.7 % (0-3); DEVICE NRB; HEMOBLOGIN CONTENT 12.4 G/DL (12-16); METHEMOGLOBIN 0.3 % (0-3); O2 CONTENT 15.6 VOL% (18-24); OPERATOR ID 32214; SAMPLE Arterial
[2016-04-20] MEDS ORDERED: ZOFRAN4 PO (17:16)
[2016-04-20] MEDS ORDERED: NORV10 PO (17:16)
[2016-04-20] MEDS ORDERED: NORCO1 TAB PO (17:17)
[2016-04-20] MEDS ORDERED: KEPPRA250 PO (17:18)
[2016-04-20] MEDS ORDERED: PRILOSEC40 MG PO (17:18)
[2016-04-20] MEDS ORDERED: COZAAR100 MG PO (17:19)
[2016-04-20] MEDS ORDERED: NOR25 PO (17:20)
[2016-04-20] MEDS ORDERED: PROVHFA INH (17:21)
[2016-04-20 17:49] LABS: CALCIUM, SERUM 8.2 MG/DL (8.5-10.4); CHLORIDE, SERUM 93 MMOL/L (96-112); CO2 (CARBON DIOXIDE) 23 MMOL/L (24-34); POTASSIUM, SERUM 4.2 MMOL/L (3.5-5.3); SODIUM, SERUM 132 MMOL/L (135-148)
[2016-04-20 17:50] LABS: BUN (BLOOD UREA NITROGEN) 34 MG/DL (6-23); CHEST PAIN PROFILE TAT 0 Hrs 21 Mins; CREATININE 6.59 MG/DL (0.55-1.02); GFR AFRICAN AMERICAN 8 ML/MIN (>=60); GFR NON AFRICAN AMERICAN 6 ML/MIN (>=60); GLUCOSE, SERUM 124 MG/DL (60-99); TROPONIN I 0.25 NG/ML (<0.05)
[2016-04-20 18:37] LABS: CARBOXYHEMOGLOBIN 0.9 % (0-3); HCO3 (ACTUAL BICARBONATE) 19.1 MEQ/L (23-27); HEMOBLOGIN CONTENT 11.6 G/DL (12-16); INSTRUMENT SERIAL # 8087; METHEMOGLOBIN 0.5 % (0-3); MODE CMV; O2 CONTENT 15.3 VOL% (18-24); OPERATOR ID 32214; PCO2 (CO2 TENSION) 33 MMHG (35-45); PO2 (O2 TENSION) 78 MMHG (79-93); SAMPLE Arterial; TIDAL VOLUME 400 ML; pH 7.39 (7.37-7.43)
[2016-04-20 22:36] LABS: PROCALCITONIN 92.32 ng/mL (<0.5)
[2016-04-20 23:15] LABS: INFLUENZA A SCREEN POSITIVE (NEGATIVE); INFLUENZA B SCREEN NEGATIVE (NEGATIVE)
[2016-04-21 04:44] LABS: HEMOGLOBIN 10.7 g/dL (12.0-16.0); MEAN CORPUS HGB CONC 33.9 g/dL (32.0-36.0); MEAN CORPUSCULAR VOLUME 94.6 fL (80-100); MEAN PLATELET VOLUME 11.2 fL (9.2-13.0); RBC DISTRIBUTION WIDTH 14.8 % (12.0-16.0); RED CELL COUNT 3.34 10/6/uL (4.0-5.6); WHITE BLOOD CELLS 4.2 10/3/uL (4.5-10.5)
[2016-04-21 04:48] LABS: HEMATOCRIT 31.6 % (36.0-48.0); PLATELET COUNT 76 10/3/uL (150-400)
[2016-04-21 04:49] LABS: MANUAL DIFF YES %
[2016-04-21 04:58] LABS: CALCIUM, SERUM 7.7 MG/DL (8.5-10.4); CHLORIDE, SERUM 95 MMOL/L (96-112); CO2 (CARBON DIOXIDE) 20 MMOL/L (24-34); CREATININE 6.83 MG/DL (0.55-1.02); GFR AFRICAN AMERICAN 7 ML/MIN (>=60); GFR NON AFRICAN AMERICAN 6 ML/MIN (>=60); GLUCOSE, SERUM 119 MG/DL (60-99); POTASSIUM, SERUM 4.4 MMOL/L (3.5-5.3); SGOT(AST) 31 U/L (5-40); SGPT(ALT) 12 U/L (5-65); SODIUM, SERUM 132 MMOL/L (135-148); TOTAL BILIRUBIN 1.2 MG/DL (0-1.2)
[2016-04-21 05:00] LABS: A/G RATIO 0.6 (0.7-1.9); ALBUMIN 2.3 G/DL (3.5-5.0); ALKALINE PHOSPHATASE 69 U/L (45-117); BUN (BLOOD UREA NITROGEN) 39 MG/DL (6-23); GLOBULIN 3.6 G/DL (2.5-4.1); TOTAL PROTEIN 5.9 G/DL (6.0-8.5)
[2016-04-21 05:36] LABS: ACANTHOCYTES FEW (3-10/OIF); BAND NEUTROPHILS 55 %; IMMATURE GRANS ABSOLUTE (CALC) 0.34 10/3/uL (0.0-0.11); LYMPHOCYTES 5 %; LYMPHOCYTES ABSOLUTE (CALC) 0.21 10/3/uL (0.67-4.30); METAMYELOCYTES 8 %; MONOCYTES 2 %; MONOCYTES ABSOLUTE (CALC) 0.08 10/3/uL (0.21-1.20); NEUTROPHILS ABSOLUTE (CALC) 3.57 10/3/uL (2.02-8.40); PLATELET ESTIMATE DEC (ADEQUATE); SEGMENTED NEUTROPHIL (0) 30 %; TOTAL NUCLEATED CELLS 100
[2016-04-21 06:42] LABS: PROCALCITONIN 181.49 ng/mL (<0.5)
[2016-04-22 04:17] LABS: HEMATOCRIT 29.5 % (36.0-48.0); HEMOGLOBIN 9.9 g/dL (12.0-16.0); MEAN CORPUS HGB CONC 33.6 g/dL (32.0-36.0); MEAN CORPUSCULAR HEMOGLOB 31.9 pg (26.0-34.0); MEAN CORPUSCULAR VOLUME 95.2 fL (80-100); MEAN PLATELET VOLUME 11.3 fL (9.2-13.0); PLATELET COUNT 96 10/3/uL (150-400); RBC DISTRIBUTION WIDTH 15.1 % (12.0-16.0)
[2016-04-22 04:24] LABS: MANUAL DIFF YES %; WHITE BLOOD CELLS 9.1 10/3/uL (4.5-10.5)
[2016-04-22 04:30] LABS: ALBUMIN 2.1 G/DL (3.5-5.0); CALCIUM, SERUM 7.4 MG/DL (8.5-10.4); CHLORIDE, SERUM 99 MMOL/L (96-112); CO2 (CARBON DIOXIDE) 24 MMOL/L (24-34); GLUCOSE, SERUM 131 MG/DL (60-99); SODIUM, SERUM 136 MMOL/L (135-148)
[2016-04-22 04:31] LABS: BUN (BLOOD UREA NITROGEN) 26 MG/DL (6-23); CREATININE 4.36 MG/DL (0.55-1.02); GFR AFRICAN AMERICAN 12 ML/MIN (>=60); GFR NON AFRICAN AMERICAN 11 ML/MIN (>=60); PHOSPHORUS, SERUM 2.3 MG/DL (2.5-4.5); POTASSIUM, SERUM 4.3 MMOL/L (3.5-5.3)
[2016-04-22 05:25] LABS: BAND NEUTROPHILS 46 %; IMMATURE GRANS ABSOLUTE (CALC) 0.27 10/3/uL (0.0-0.11); LYMPHOCYTES 2 %; LYMPHOCYTES ABSOLUTE (CALC) 0.18 10/3/uL (0.67-4.30); METAMYELOCYTES 3 %; MONOCYTES 2 %; MONOCYTES ABSOLUTE (CALC) 0.18 10/3/uL (0.21-1.20); NEUTROPHILS ABSOLUTE (CALC) 8.46 10/3/uL (2.02-8.40); SEGMENTED NEUTROPHIL (0) 47 %; TOTAL NUCLEATED CELLS 100
[2016-04-22 05:26] LABS: ACANTHOCYTES FEW (3-10/OIF); PLATELET ESTIMATE DEC (ADEQUATE)
[2016-04-23 03:40] LABS: BE (BASE EXCESS) -1.6 MEQ/L (0 +/- 2.5); CARBOXYHEMOGLOBIN 0.4 % (0-3); HCO3 (ACTUAL BICARBONATE) 23.1 MEQ/L (23-27); HEMOBLOGIN CONTENT 10.9 G/DL (12-16); INSTRUMENT SERIAL # 8083; METHEMOGLOBIN 0.4 % (0-3); MODE CMV; O2 CONTENT 14.4 VOL% (18-24); OPERATOR ID 14661; PCO2 (CO2 TENSION) 39 MMHG (35-45); PO2 (O2 TENSION) 72 MMHG (79-93); SAMPLE Arterial; TIDAL VOLUME 400 ML; pH 7.39 (7.37-7.43)
[2016-04-23 04:54] LABS: A/G RATIO 0.5 (0.7-1.9); ALBUMIN 2.1 G/DL (3.5-5.0); ALKALINE PHOSPHATASE 79 U/L (45-117); CALCIUM, SERUM 7.3 MG/DL (8.5-10.4); CHLORIDE, SERUM 96 MMOL/L (96-112); CO2 (CARBON DIOXIDE) 20 MMOL/L (24-34); PHOSPHORUS, SERUM 2.8 MG/DL (2.5-4.5); SGPT(ALT) 18 U/L (5-65); SODIUM, SERUM 134 MMOL/L (135-148); TOTAL BILIRUBIN 1.1 MG/DL (0-1.2); TOTAL PROTEIN 6.1 G/DL (6.0-8.5)
[2016-04-23 04:59] LABS: BUN (BLOOD UREA NITROGEN) 47 MG/DL (6-23); CREATININE 4.99 MG/DL (0.55-1.02); GFR AFRICAN AMERICAN 11 ML/MIN (>=60); GFR NON AFRICAN AMERICAN 9 ML/MIN (>=60); GLUCOSE, SERUM 91 MG/DL (60-99); POTASSIUM, SERUM 4.2 MMOL/L (3.5-5.3)
[2016-04-23 05:00] LABS: SGOT(AST) 50 U/L (5-40)
[2016-04-23 05:34] LABS: HEMATOCRIT 29.6 % (36.0-48.0); HEMOGLOBIN 9.6 g/dL (12.0-16.0); MEAN CORPUS HGB CONC 32.4 g/dL (32.0-36.0); MEAN CORPUSCULAR HEMOGLOB 31.2 pg (26.0-34.0); MEAN CORPUSCULAR VOLUME 96.1 fL (80-100); MEAN PLATELET VOLUME 11.5 fL (9.2-13.0); PLATELET COUNT 99 10/3/uL (150-400); RBC DISTRIBUTION WIDTH 15.4 % (12.0-16.0); RED CELL COUNT 3.08 10/6/uL (4.0-5.6)
[2016-04-23 05:39] LABS: MANUAL DIFF YES %; WHITE BLOOD CELLS 14.1 10/3/uL (4.5-10.5)
[2016-04-23 06:07] LABS: BAND NEUTROPHILS 13 %; LYMPHOCYTES 6 %; LYMPHOCYTES ABSOLUTE (CALC) 0.85 10/3/uL (0.67-4.30); NEUTROPHILS ABSOLUTE (CALC) 13.25 10/3/uL (2.02-8.40); PLATELET ESTIMATE DEC (ADEQUATE); RBC MORPHOLOGY NORM (NORMAL); SEGMENTED NEUTROPHIL (0) 81 %; TOTAL NUCLEATED CELLS 100
[2016-04-24 09:04] LABS: HEMATOCRIT 31.3 % (36.0-48.0); HEMOGLOBIN 10.2 g/dL (12.0-16.0); MEAN CORPUS HGB CONC 32.6 g/dL (32.0-36.0); MEAN CORPUSCULAR HEMOGLOB 31.8 pg (26.0-34.0); MEAN CORPUSCULAR VOLUME 97.5 fL (80-100); MEAN PLATELET VOLUME 11.4 fL (9.2-13.0); PLATELET COUNT 94 10/3/uL (150-400); RBC DISTRIBUTION WIDTH 15.7 % (12.0-16.0); RED CELL COUNT 3.21 10/6/uL (4.0-5.6); WHITE BLOOD CELLS 18.4 10/3/uL (4.5-10.5)
[2016-04-24 09:08] LABS: MANUAL DIFF YES %
[2016-04-24 09:20] LABS: CALCIUM, SERUM 7.3 MG/DL (8.5-10.4); CHLORIDE, SERUM 102 MMOL/L (96-112); CO2 (CARBON DIOXIDE) 24 MMOL/L (24-34); PHOSPHORUS, SERUM 2.9 MG/DL (2.5-4.5); POTASSIUM, SERUM 3.8 MMOL/L (3.5-5.3)
[2016-04-24 09:21] LABS: ALBUMIN 2.7 G/DL (3.5-5.0); BUN (BLOOD UREA NITROGEN) 40 MG/DL (6-23); CREATININE 3.07 MG/DL (0.55-1.02); GFR AFRICAN AMERICAN 19 ML/MIN (>=60); GFR NON AFRICAN AMERICAN 16 ML/MIN (>=60); GLUCOSE, SERUM 202 MG/DL (60-99); SODIUM, SERUM 141 MMOL/L (135-148); TROPONIN I 0.23 NG/ML (<0.05)
[2016-04-24 11:35] LABS: BAND NEUTROPHILS 19 %; HELMET CELLS OCC (0-2/OIF); LYMPHOCYTES 3 %; LYMPHOCYTES ABSOLUTE (CALC) 0.55 10/3/uL (0.67-4.30); MONOCYTES 1 %; MONOCYTES ABSOLUTE (CALC) 0.18 10/3/uL (0.21-1.20); NEUTROPHILS ABSOLUTE (CALC) 17.66 10/3/uL (2.02-8.40); PLATELET ESTIMATE DEC (ADEQUATE); POLYCHROMASIA 1+ (2-5/OIF) (0-1/OIF); SEGMENTED NEUTROPHIL (0) 77 %; TOTAL NUCLEATED CELLS 100
[2016-04-24 11:36] LABS: MACROCYTES 1+ (5-10/OIF) (0-5/OIF); TEARDROP SHAPED RBCS OCC (0-2/OIF)
[2016-04-24 12:30] LABS: BE (BASE EXCESS) -2.2 MEQ/L (0 +/- 2.5); CARBOXYHEMOGLOBIN 0.4 % (0-3); HCO3 (ACTUAL BICARBONATE) 22.1 MEQ/L (23-27); HEMOBLOGIN CONTENT 10.9 G/DL (12-16); INSTRUMENT SERIAL # 8083; METHEMOGLOBIN 0.3 % (0-3); O2 CONTENT 14.5 VOL% (18-24); OPERATOR ID 32214; PCO2 (CO2 TENSION) 36 MMHG (35-45); PO2 (O2 TENSION) 73 MMHG (79-93); SAMPLE Arterial; TIDAL VOLUME 400 ML; pH 7.41 (7.37-7.43)
[2016-04-25 04:25] LABS: ALLENS TEST Pos; BE (BASE EXCESS) -5.1 MEQ/L (0 +/- 2.5); CARBOXYHEMOGLOBIN 1.5 % (0-3); HCO3 (ACTUAL BICARBONATE) 18.9 MEQ/L (23-27); HEMOBLOGIN CONTENT 11.6 G/DL (12-16); INSTRUMENT SERIAL # 8087; METHEMOGLOBIN 0.5 % (0-3); O2 CONTENT 15.7 VOL% (18-24); OPERATOR ID 334499; PCO2 (CO2 TENSION) 32 MMHG (35-45); PO2 (O2 TENSION) 92 MMHG (79-93); SAMPLE Arterial; TIDAL VOLUME 400 ML; pH 7.39 (7.37-7.43)
[2016-04-25 05:18] LABS: HEMOGLOBIN 11.8 g/dL (12.0-16.0); MEAN CORPUS HGB CONC 32.5 g/dL (32.0-36.0); MEAN CORPUSCULAR HEMOGLOB 31.6 pg (26.0-34.0); MEAN CORPUSCULAR VOLUME 97.3 fL (80-100); MEAN PLATELET VOLUME 10.5 fL (9.2-13.0); NUCLEATED RED BLOOD CELLS 0.2 /100WBC (0-0); RBC DISTRIBUTION WIDTH 15.9 % (12.0-16.0); RED CELL COUNT 3.73 10/6/uL (4.0-5.6)
[2016-04-25 05:19] LABS: HEMATOCRIT 36.3 % (36.0-48.0); PLATELET COUNT 144 10/3/uL (150-400); WHITE BLOOD CELLS 30.2 10/3/uL (4.5-10.5)
[2016-04-25 05:20] LABS: MANUAL DIFF YES %
[2016-04-25 05:28] LABS: A/G RATIO 0.6 (0.7-1.9); ALBUMIN 2.8 G/DL (3.5-5.0); CALCIUM, SERUM 7.6 MG/DL (8.5-10.4); CHLORIDE, SERUM 100 MMOL/L (96-112); CO2 (CARBON DIOXIDE) 20 MMOL/L (24-34); GLOBULIN 4.4 G/DL (2.5-4.1); PHOSPHORUS, SERUM 3.6 MG/DL (2.5-4.5); POTASSIUM, SERUM 3.9 MMOL/L (3.5-5.3); SGOT(AST) 24 U/L (5-40); SGPT(ALT) 21 U/L (5-65); SODIUM, SERUM 136 MMOL/L (135-148); TOTAL BILIRUBIN 1.2 MG/DL (0-1.2); TOTAL PROTEIN 7.2 G/DL (6.0-8.5)
[2016-04-25 05:30] LABS: ALKALINE PHOSPHATASE 127 U/L (45-117); BUN (BLOOD UREA NITROGEN) 68 MG/DL (6-23); CREATININE 4.03 MG/DL (0.55-1.02); GFR AFRICAN AMERICAN 14 ML/MIN (>=60); GFR NON AFRICAN AMERICAN 12 ML/MIN (>=60); GLUCOSE, SERUM 277 MG/DL (60-99)
[2016-04-25 06:05] LABS: BAND NEUTROPHILS 17 %; EOSINOPHILS 2 %; LYMPHOCYTES 3 %; LYMPHOCYTES ABSOLUTE (CALC) 0.91 10/3/uL (0.67-4.30); MONOCYTES 1 %; NEUTROPHILS ABSOLUTE (CALC) 28.39 10/3/uL (2.02-8.40); PLATELET ESTIMATE SLT DEC (ADEQUATE); SEGMENTED NEUTROPHIL (0) 77 %; TOTAL NUCLEATED CELLS 100
[2016-04-25 06:06] LABS: HELMET CELLS OCC (0-2/OIF); POLYCHROMASIA 1+ (2-5/OIF) (0-1/OIF); TARGET CELLS OCC (1-2/OIF) (0-1/OIF); TEARDROP SHAPED RBCS OCC (0-2/OIF); TOXIC GRANULATION 1+; VACUOLATED NEUTROPHILES OCC
[2016-04-25 06:10] LABS: MACROCYTES 1+ (5-10/OIF) (0-5/OIF)
[2016-04-25 10:08] LABS: FREE T4 0.72 NG/DL (0.76-1.46); ULTRASENSITIVE TSH 1.52 MCIU/ML (0.358-3.740)
[2016-04-26 04:35] LABS: BE (BASE EXCESS) -6.1 MEQ/L (0 +/- 2.5); CARBOXYHEMOGLOBIN 0.6 % (0-3); HEMOBLOGIN CONTENT 10.5 G/DL (12-16); INSTRUMENT SERIAL # 8083; METHEMOGLOBIN 0.3 % (0-3); MODE CMV; O2 CONTENT 14.1 VOL% (18-24); OPERATOR ID 30013; PCO2 (CO2 TENSION) 31 MMHG (35-45); PO2 (O2 TENSION) 82 MMHG (79-93); SAMPLE Arterial; TIDAL VOLUME 400 ML; pH 7.38 (7.37-7.43)
[2016-04-26 04:48] LABS: A/G RATIO 0.7 (0.7-1.9); ALBUMIN 2.6 G/DL (3.5-5.0); ALKALINE PHOSPHATASE 122 U/L (45-117); CALCIUM, SERUM 7.6 MG/DL (8.5-10.4); CHLORIDE, SERUM 98 MMOL/L (96-112); CO2 (CARBON DIOXIDE) 17 MMOL/L (24-34); CREATININE 4.46 MG/DL (0.55-1.02); GFR AFRICAN AMERICAN 12 ML/MIN (>=60); GFR NON AFRICAN AMERICAN 10 ML/MIN (>=60); POTASSIUM, SERUM 4.3 MMOL/L (3.5-5.3); SGPT(ALT) 29 U/L (5-65); SODIUM, SERUM 132 MMOL/L (135-148); TOTAL BILIRUBIN 0.9 MG/DL (0-1.2); TOTAL PROTEIN 6.6 G/DL (6.0-8.5)
[2016-04-26 04:51] LABS: BUN (BLOOD UREA NITROGEN) 96 MG/DL (6-23); GLUCOSE, SERUM 171 MG/DL (60-99); PHOSPHORUS, SERUM 4.6 MG/DL (2.5-4.5); SGOT(AST) 30 U/L (5-40)
[2016-04-26 07:11] LABS: HEMOGLOBIN 10.5 g/dL (12.0-16.0); PLATELET COUNT 134 10/3/uL (150-400); RBC DISTRIBUTION WIDTH 15.5 % (12.0-16.0); RED CELL COUNT 3.39 10/6/uL (4.0-5.6)
[2016-04-26 07:12] LABS: HEMATOCRIT 31.8 % (36.0-48.0); MEAN CORPUSCULAR VOLUME 93.8 fL (80-100); WHITE BLOOD CELLS 30.9 10/3/uL (4.5-10.5)
[2016-04-26 07:13] LABS: MANUAL DIFF YES %
[2016-04-26 07:36] LABS: BAND NEUTROPHILS 18 %; LYMPHOCYTES 4 %; LYMPHOCYTES ABSOLUTE (CALC) 1.24 10/3/uL (0.67-4.30); MONOCYTES 2 %; MONOCYTES ABSOLUTE (CALC) 0.62 10/3/uL (0.21-1.20); NEUTROPHILS ABSOLUTE (CALC) 29.05 10/3/uL (2.02-8.40); PLATELET ESTIMATE SLT DEC (ADEQUATE); SEGMENTED NEUTROPHIL (0) 76 %; TOTAL NUCLEATED CELLS 100
[2016-04-26 07:37] LABS: HYPOCHROMIA 1+ (3-10/OIF) (0-2/OIF); MACROCYTES 1+ (5-10/OIF) (0-5/OIF); POLYCHROMASIA 1+ (2-5/OIF) (0-1/OIF)
[2016-04-27 03:32] LABS: ALLENS TEST Pos; BE (BASE EXCESS) -5.7 MEQ/L (0 +/- 2.5); CARBOXYHEMOGLOBIN 0.3 % (0-3); HEMOBLOGIN CONTENT 11.4 G/DL (12-16); INSTRUMENT SERIAL # 8083; METHEMOGLOBIN 0.4 % (0-3); MODE CMV; O2 CONTENT 15.6 VOL% (18-24); OPERATOR ID 17370; PCO2 (CO2 TENSION) 30 MMHG (35-45); PO2 (O2 TENSION) 93 MMHG (79-93); SAMPLE Arterial; TIDAL VOLUME 400 ML
[2016-04-27 03:55] LABS: HEMATOCRIT 33.5 % (36.0-48.0); MANUAL DIFF YES %; MEAN CORPUS HGB CONC 32.8 g/dL (32.0-36.0); MEAN CORPUSCULAR HEMOGLOB 31.3 pg (26.0-34.0); MEAN CORPUSCULAR VOLUME 95.2 fL (80-100); MEAN PLATELET VOLUME 10.4 fL (9.2-13.0); PLATELET COUNT 158 10/3/uL (150-400); RBC DISTRIBUTION WIDTH 15.7 % (12.0-16.0); RED CELL COUNT 3.52 10/6/uL (4.0-5.6); WHITE BLOOD CELLS 36.1 10/3/uL (4.5-10.5)
[2016-04-27 04:09] LABS: ALBUMIN 2.5 G/DL (3.5-5.0); CALCIUM, SERUM 7.7 MG/DL (8.5-10.4); CHLORIDE, SERUM 102 MMOL/L (96-112); CO2 (CARBON DIOXIDE) 18 MMOL/L (24-34); PHOSPHORUS, SERUM 3.7 MG/DL (2.5-4.5); POTASSIUM, SERUM 3.6 MMOL/L (3.5-5.3)
[2016-04-27 04:18] LABS: BUN (BLOOD UREA NITROGEN) 64 MG/DL (6-23); CREATININE 3.29 MG/DL (0.55-1.02); GFR AFRICAN AMERICAN 17 ML/MIN (>=60); GFR NON AFRICAN AMERICAN 15 ML/MIN (>=60); GLUCOSE, SERUM 246 MG/DL (60-99); SODIUM, SERUM 139 MMOL/L (135-148)
[2016-04-27 04:22] LABS: BAND NEUTROPHILS 1 %; IMMATURE GRANS ABSOLUTE (CALC) 0.36 10/3/uL (0.0-0.11); METAMYELOCYTES 1 %; MONOCYTES 1 %; MONOCYTES ABSOLUTE (CALC) 0.36 10/3/uL (0.21-1.20); NEUTROPHILS ABSOLUTE (CALC) 35.38 10/3/uL (2.02-8.40); PLATELET ESTIMATE ADQ (ADEQUATE); RBC MORPHOLOGY NORM (NORMAL); SEGMENTED NEUTROPHIL (0) 97 %; TOTAL NUCLEATED CELLS 100
[2016-04-28 04:24] LABS: HEMOGLOBIN 10.6 g/dL (12.0-16.0); MEAN CORPUS HGB CONC 33.1 g/dL (32.0-36.0); MEAN CORPUSCULAR HEMOGLOB 31.2 pg (26.0-34.0); MEAN CORPUSCULAR VOLUME 94.1 fL (80-100); MEAN PLATELET VOLUME 10.7 fL (9.2-13.0); PLATELET COUNT 194 10/3/uL (150-400); RBC DISTRIBUTION WIDTH 15.6 % (12.0-16.0)
[2016-04-28 04:25] LABS: MANUAL DIFF YES %; WHITE BLOOD CELLS 36.5 10/3/uL (4.5-10.5)
[2016-04-28 04:37] LABS: ALBUMIN 2.2 G/DL (3.5-5.0); CALCIUM, SERUM 7.3 MG/DL (8.5-10.4); CHLORIDE, SERUM 104 MMOL/L (96-112); POTASSIUM, SERUM 3.9 MMOL/L (3.5-5.3); SODIUM, SERUM 142 MMOL/L (135-148)
[2016-04-28 04:38] LABS: BUN (BLOOD UREA NITROGEN) 96 MG/DL (6-23); CO2 (CARBON DIOXIDE) 22 MMOL/L (24-34); CREATININE 3.91 MG/DL (0.55-1.02); GFR AFRICAN AMERICAN 14 ML/MIN (>=60); GFR NON AFRICAN AMERICAN 12 ML/MIN (>=60); GLUCOSE, SERUM 125 MG/DL (60-99); PHOSPHORUS, SERUM 4.9 MG/DL (2.5-4.5)
[2016-04-28 05:07] LABS: BAND NEUTROPHILS 10 %; LYMPHOCYTES 2 %; LYMPHOCYTES ABSOLUTE (CALC) 0.73 10/3/uL (0.67-4.30); NEUTROPHILS ABSOLUTE (CALC) 35.77 10/3/uL (2.02-8.40); SEGMENTED NEUTROPHIL (0) 88 %; TOTAL NUCLEATED CELLS 100
[2016-04-28 05:08] LABS: PLATELET ESTIMATE ADQ (ADEQUATE)
[2016-04-28 05:09] LABS: RBC MORPHOLOGY NORM (NORMAL)
[2016-04-28 11:33] LABS: PROCALCITONIN 32.03 ng/mL (<0.5)
[2016-04-29 04:21] LABS: HEMATOCRIT 30.6 % (36.0-48.0); HEMOGLOBIN 9.7 g/dL (12.0-16.0); MEAN CORPUS HGB CONC 31.7 g/dL (32.0-36.0); MEAN CORPUSCULAR HEMOGLOB 30.3 pg (26.0-34.0); MEAN CORPUSCULAR VOLUME 95.6 fL (80-100); MEAN PLATELET VOLUME 9.7 fL (9.2-13.0); PLATELET COUNT 175 10/3/uL (150-400); RBC DISTRIBUTION WIDTH 15.7 % (12.0-16.0)
[2016-04-29 04:22] LABS: MANUAL DIFF YES %; WHITE BLOOD CELLS 28.3 10/3/uL (4.5-10.5)
[2016-04-29 04:45] LABS: ALBUMIN 2.4 G/DL (3.5-5.0); CALCIUM, SERUM 7.1 MG/DL (8.5-10.4); CHLORIDE, SERUM 103 MMOL/L (96-112); CO2 (CARBON DIOXIDE) 24 MMOL/L (24-34); SODIUM, SERUM 140 MMOL/L (135-148)
[2016-04-29 04:46] LABS: BUN (BLOOD UREA NITROGEN) 60 MG/DL (6-23); CREATININE 2.75 MG/DL (0.55-1.02); GFR AFRICAN AMERICAN 22 ML/MIN (>=60); GFR NON AFRICAN AMERICAN 19 ML/MIN (>=60); GLUCOSE, SERUM 154 MG/DL (60-99); PHOSPHORUS, SERUM 3.5 MG/DL (2.5-4.5)
[2016-04-29 04:53] LABS: BAND NEUTROPHILS 4 %; LYMPHOCYTES 1 %; LYMPHOCYTES ABSOLUTE (CALC) 0.28 10/3/uL (0.67-4.30); NEUTROPHILS ABSOLUTE (CALC) 28.02 10/3/uL (2.02-8.40); PLATELET ESTIMATE ADQ (ADEQUATE); RBC MORPHOLOGY NORM (NORMAL); SEGMENTED NEUTROPHIL (0) 95 %; TOTAL NUCLEATED CELLS 100
[2016-04-29 07:38] LABS: CARBOXYHEMOGLOBIN 0.3 % (0-3); HCO3 (ACTUAL BICARBONATE) 22.5 MEQ/L (23-27); INSTRUMENT SERIAL # 11843; METHEMOGLOBIN 0.6 % (0-3); O2 CONTENT 12.6 VOL% (18-24); OPERATOR ID 23712; PCO2 (CO2 TENSION) 29 MMHG (35-45); PO2 (O2 TENSION) 141 MMHG (79-93); SAMPLE Arterial; pH 7.51 (7.37-7.43)
[2016-04-29 07:39] LABS: MODE CMV; TIDAL VOLUME 400 ML
[2016-04-29 14:01] LABS: BE (BASE EXCESS) -0.3 MEQ/L (0 +/- 2.5); CARBOXYHEMOGLOBIN 0.4 % (0-3); HCO3 (ACTUAL BICARBONATE) 23.1 MEQ/L (23-27); HEMOBLOGIN CONTENT 9.5 G/DL (12-16); INSTRUMENT SERIAL # 8083; METHEMOGLOBIN 0.2 % (0-3); MODE CPAP/PS; O2 CONTENT 13.4 VOL% (18-24); OPERATOR ID 14382; PCO2 (CO2 TENSION) 33 MMHG (35-45); PO2 (O2 TENSION) 136 MMHG (79-93); PRESSURE SUPPORT 5 cm.H2O; SAMPLE Arterial; pH 7.46 (7.37-7.43)
[2016-04-30 03:59] LABS: HEMATOCRIT 29.1 % (36.0-48.0); HEMOGLOBIN 9.6 g/dL (12.0-16.0); MANUAL DIFF YES %; MEAN CORPUSCULAR HEMOGLOB 31.1 pg (26.0-34.0); MEAN CORPUSCULAR VOLUME 94.2 fL (80-100); MEAN PLATELET VOLUME 9.6 fL (9.2-13.0); PLATELET COUNT 182 10/3/uL (150-400); RBC DISTRIBUTION WIDTH 15.6 % (12.0-16.0); RED CELL COUNT 3.09 10/6/uL (4.0-5.6); WHITE BLOOD CELLS 16.7 10/3/uL (4.5-10.5)
[2016-04-30 04:10] LABS: ALBUMIN 2.2 G/DL (3.5-5.0); CALCIUM, SERUM 7.2 MG/DL (8.5-10.4); CHLORIDE, SERUM 103 MMOL/L (96-112); CO2 (CARBON DIOXIDE) 20 MMOL/L (24-34); GLUCOSE, SERUM 133 MG/DL (60-99); POTASSIUM, SERUM 4.2 MMOL/L (3.5-5.3); SODIUM, SERUM 142 MMOL/L (135-148)
[2016-04-30 04:21] LABS: BUN (BLOOD UREA NITROGEN) 84 MG/DL (6-23); CREATININE 3.77 MG/DL (0.55-1.02); GFR AFRICAN AMERICAN 15 ML/MIN (>=60); GFR NON AFRICAN AMERICAN 13 ML/MIN (>=60); PHOSPHORUS, SERUM 5.7 MG/DL (2.5-4.5)
[2016-04-30 04:53] LABS: BAND NEUTROPHILS 1 %; LYMPHOCYTES 1 %; LYMPHOCYTES ABSOLUTE (CALC) 0.17 10/3/uL (0.67-4.30); MONOCYTES 8 %; MONOCYTES ABSOLUTE (CALC) 1.34 10/3/uL (0.21-1.20); SEGMENTED NEUTROPHIL (0) 90 %; TOTAL NUCLEATED CELLS 100
[2016-04-30 04:55] LABS: PLATELET ESTIMATE ADQ (ADEQUATE); RBC MORPHOLOGY NORM (NORMAL)
[2016-04-30 06:45] LABS: PROCALCITONIN 18.66 ng/mL (<0.5)
[2016-05-01 05:35] LABS: ALBUMIN 2.6 G/DL (3.5-5.0); CALCIUM, SERUM 7.4 MG/DL (8.5-10.4); CHLORIDE, SERUM 104 MMOL/L (96-112); CO2 (CARBON DIOXIDE) 22 MMOL/L (24-34); GFR AFRICAN AMERICAN 22 ML/MIN (>=60); GFR NON AFRICAN AMERICAN 19 ML/MIN (>=60); GLUCOSE, SERUM 110 MG/DL (60-99); PHOSPHORUS, SERUM 5.3 MG/DL (2.5-4.5); POTASSIUM, SERUM 4.1 MMOL/L (3.5-5.3); SODIUM, SERUM 141 MMOL/L (135-148)
[2016-05-01 05:36] LABS: BUN (BLOOD UREA NITROGEN) 56 MG/DL (6-23); CREATININE 2.76 MG/DL (0.55-1.02)
[2016-05-01 06:03] LABS: HEMATOCRIT 32.4 % (36.0-48.0); HEMOGLOBIN 10.4 g/dL (12.0-16.0); MANUAL DIFF YES %; MEAN CORPUS HGB CONC 32.1 g/dL (32.0-36.0); MEAN CORPUSCULAR HEMOGLOB 30.7 pg (26.0-34.0); MEAN CORPUSCULAR VOLUME 95.6 fL (80-100); MEAN PLATELET VOLUME 9.9 fL (9.2-13.0); PLATELET COUNT 229 10/3/uL (150-400); RBC DISTRIBUTION WIDTH 15.7 % (12.0-16.0); RED CELL COUNT 3.39 10/6/uL (4.0-5.6); WHITE BLOOD CELLS 24.1 10/3/uL (4.5-10.5)
[2016-05-01 06:30] LABS: BAND NEUTROPHILS 1 %; LYMPHOCYTES 1 %; LYMPHOCYTES ABSOLUTE (CALC) 0.24 10/3/uL (0.67-4.30); MONOCYTES 1 %; MONOCYTES ABSOLUTE (CALC) 0.24 10/3/uL (0.21-1.20); NEUTROPHILS ABSOLUTE (CALC) 23.62 10/3/uL (2.02-8.40); PLATELET ESTIMATE ADQ (ADEQUATE); RBC MORPHOLOGY NORM (NORMAL); SEGMENTED NEUTROPHIL (0) 97 %; TOTAL NUCLEATED CELLS 100
[2016-05-02 05:45] LABS: BASOPHILS 0.1 %; BASOPHILS ABSOLUTE 0.01 10/3/uL (0.0-0.16); EOSINOPHILS 0.1 %; EOSINOPHILS ABSOLUTE 0.01 10/3/uL (0.0-0.53); HEMOGLOBIN 9.1 g/dL (12.0-16.0); IMMATURE GRANULOCYTES 1.3 %; IMMATURE GRANULOCYTES ABSOLUTE 0.23 10/3/uL (0.0-0.11); LYMPHOCYTES 4.6 %; MEAN CORPUS HGB CONC 32.9 g/dL (32.0-36.0); MEAN CORPUSCULAR HEMOGLOB 31.6 pg (26.0-34.0); MEAN CORPUSCULAR VOLUME 96.2 fL (80-100); MEAN PLATELET VOLUME 9.8 fL (9.2-13.0); MONOCYTES 1.9 %; MONOCYTES ABSOLUTE 0.32 10/3/uL (0.21-1.20); NEUTROPHILS ABSOLUTE 15.92 10/3/uL (2.02-8.40); PLATELET COUNT 217 10/3/uL (150-400); RBC DISTRIBUTION WIDTH 15.8 % (12.0-16.0); RED CELL COUNT 2.88 10/6/uL (4.0-5.6); WHITE BLOOD CELLS 17.3 10/3/uL (4.5-10.5)
[2016-05-02 05:49] LABS: HEMATOCRIT 27.7 % (36.0-48.0); MANUAL DIFF NO %
[2016-05-02 06:06] LABS: BUN (BLOOD UREA NITROGEN) 76 MG/DL (6-23); CALCIUM, SERUM 7.1 MG/DL (8.5-10.4); CHLORIDE, SERUM 106 MMOL/L (96-112); CO2 (CARBON DIOXIDE) 22 MMOL/L (24-34); CREATININE 3.63 MG/DL (0.55-1.02); GFR AFRICAN AMERICAN 15 ML/MIN (>=60); GFR NON AFRICAN AMERICAN 13 ML/MIN (>=60); GLUCOSE, SERUM 111 MG/DL (60-99); PHOSPHORUS, SERUM 6.8 MG/DL (2.5-4.5); POTASSIUM, SERUM 4.1 MMOL/L (3.5-5.3); SODIUM, SERUM 144 MMOL/L (135-148)
[2016-05-03 04:31] LABS: BASOPHILS 0.1 %; BASOPHILS ABSOLUTE 0.01 10/3/uL (0.0-0.16); EOSINOPHILS 0.1 %; EOSINOPHILS ABSOLUTE 0.01 10/3/uL (0.0-0.53); HEMOGLOBIN 8.9 g/dL (12.0-16.0); IMMATURE GRANULOCYTES 1.2 %; IMMATURE GRANULOCYTES ABSOLUTE 0.23 10/3/uL (0.0-0.11); LYMPHOCYTES 3.3 %; LYMPHOCYTES ABSOLUTE 0.64 10/3/uL (0.67-4.30); MEAN CORPUSCULAR HEMOGLOB 31.6 pg (26.0-34.0); MEAN CORPUSCULAR VOLUME 95.7 fL (80-100); MEAN PLATELET VOLUME 9.3 fL (9.2-13.0); MONOCYTES 1.9 %; MONOCYTES ABSOLUTE 0.36 10/3/uL (0.21-1.20); NEUTROPHILS 93.4 %; NEUTROPHILS ABSOLUTE 17.99 10/3/uL (2.02-8.40); PLATELET COUNT 206 10/3/uL (150-400); RBC DISTRIBUTION WIDTH 15.6 % (12.0-16.0); RED CELL COUNT 2.82 10/6/uL (4.0-5.6); WHITE BLOOD CELLS 19.2 10/3/uL (4.5-10.5)
[2016-05-03 04:33] LABS: MANUAL DIFF NO %
[2016-05-03 04:43] LABS: ALBUMIN 2.6 G/DL (3.5-5.0); CALCIUM, SERUM 7.4 MG/DL (8.5-10.4); CHLORIDE, SERUM 108 MMOL/L (96-112); CO2 (CARBON DIOXIDE) 19 MMOL/L (24-34); POTASSIUM, SERUM 4.3 MMOL/L (3.5-5.3); SODIUM, SERUM 144 MMOL/L (135-148)
[2016-05-03 04:45] LABS: BUN (BLOOD UREA NITROGEN) 91 MG/DL (6-23); CREATININE 4.37 MG/DL (0.55-1.02); GFR AFRICAN AMERICAN 12 ML/MIN (>=60); GFR NON AFRICAN AMERICAN 11 ML/MIN (>=60); GLUCOSE, SERUM 166 MG/DL (60-99)
[2016-05-03 05:36] LABS: PROCALCITONIN 6.61 ng/mL (<0.5)
[2016-05-04 06:24] LABS: BASOPHILS 0.1 %; BASOPHILS ABSOLUTE 0.01 10/3/uL (0.0-0.16); EOSINOPHILS 0.2 %; EOSINOPHILS ABSOLUTE 0.03 10/3/uL (0.0-0.53); HEMATOCRIT 28.4 % (36.0-48.0); HEMOGLOBIN 9.1 g/dL (12.0-16.0); IMMATURE GRANULOCYTES 1.4 %; IMMATURE GRANULOCYTES ABSOLUTE 0.25 10/3/uL (0.0-0.11); LYMPHOCYTES 2.3 %; LYMPHOCYTES ABSOLUTE 0.39 10/3/uL (0.67-4.30); MEAN CORPUSCULAR HEMOGLOB 31.1 pg (26.0-34.0); MEAN CORPUSCULAR VOLUME 96.9 fL (80-100); MEAN PLATELET VOLUME 9.5 fL (9.2-13.0); MONOCYTES 2.3 %; NEUTROPHILS 93.7 %; NEUTROPHILS ABSOLUTE 16.19 10/3/uL (2.02-8.40); PLATELET COUNT 188 10/3/uL (150-400); RBC DISTRIBUTION WIDTH 15.9 % (12.0-16.0); RED CELL COUNT 2.93 10/6/uL (4.0-5.6); WHITE BLOOD CELLS 17.3 10/3/uL (4.5-10.5)
[2016-05-04 06:27] LABS: MANUAL DIFF NO %
[2016-05-04 06:39] LABS: ALBUMIN 2.3 G/DL (3.5-5.0); CALCIUM, SERUM 7.1 MG/DL (8.5-10.4); CHLORIDE, SERUM 109 MMOL/L (96-112); CO2 (CARBON DIOXIDE) 22 MMOL/L (24-34); SODIUM, SERUM 145 MMOL/L (135-148)
[2016-05-04 06:40] LABS: BUN (BLOOD UREA NITROGEN) 42 MG/DL (6-23); CREATININE 2.73 MG/DL (0.55-1.02); GFR AFRICAN AMERICAN 22 ML/MIN (>=60); GFR NON AFRICAN AMERICAN 19 ML/MIN (>=60); GLUCOSE, SERUM 126 MG/DL (60-99); PHOSPHORUS, SERUM 4.1 MG/DL (2.5-4.5); POTASSIUM, SERUM 4.5 MMOL/L (3.5-5.3)
[2016-05-05 11:12] LABS: ALLENS TEST Pos; BE (BASE EXCESS) -5.4 MEQ/L (0 +/- 2.5); CARBOXYHEMOGLOBIN 0.3 % (0-3); DEVICE NRB; HCO3 (ACTUAL BICARBONATE) 19.7 MEQ/L (23-27); HEMOBLOGIN CONTENT 8.8 G/DL (12-16); INSTRUMENT SERIAL # 11843; METHEMOGLOBIN 0.7 % (0-3); O2 CONTENT 13.2 VOL% (18-24); OPERATOR ID 35188; PCO2 (CO2 TENSION) 37 MMHG (35-45); PO2 (O2 TENSION) 371 MMHG (79-93); SAMPLE Arterial; pH 7.35 (7.37-7.43)
[2016-05-05 13:23] LABS: BASOPHILS 0.1 %; BASOPHILS ABSOLUTE 0.01 10/3/uL (0.0-0.16); EOSINOPHILS 0.1 %; EOSINOPHILS ABSOLUTE 0.01 10/3/uL (0.0-0.53); IMMATURE GRANULOCYTES ABSOLUTE 0.15 10/3/uL (0.0-0.11); LYMPHOCYTES 1.7 %; LYMPHOCYTES ABSOLUTE 0.25 10/3/uL (0.67-4.30); MEAN CORPUSCULAR HEMOGLOB 31.6 pg (26.0-34.0); MEAN CORPUSCULAR VOLUME 98.8 fL (80-100); MEAN PLATELET VOLUME 9.8 fL (9.2-13.0); MONOCYTES 2.4 %; MONOCYTES ABSOLUTE 0.36 10/3/uL (0.21-1.20); NEUTROPHILS 94.7 %; NEUTROPHILS ABSOLUTE 14.03 10/3/uL (2.02-8.40); PLATELET COUNT 158 10/3/uL (150-400); RBC DISTRIBUTION WIDTH 15.8 % (12.0-16.0); RED CELL COUNT 2.53 10/6/uL (4.0-5.6); WHITE BLOOD CELLS 14.8 10/3/uL (4.5-10.5)
[2016-05-05 13:24] LABS: MANUAL DIFF NO %
[2016-05-05 13:34] LABS: ALBUMIN 2.4 G/DL (3.5-5.0); BUN (BLOOD UREA NITROGEN) 56 MG/DL (6-23); CALCIUM, SERUM 7.3 MG/DL (8.5-10.4); CHLORIDE, SERUM 109 MMOL/L (96-112); CO2 (CARBON DIOXIDE) 21 MMOL/L (24-34); CREATININE 3.53 MG/DL (0.55-1.02); GFR AFRICAN AMERICAN 16 ML/MIN (>=60); GFR NON AFRICAN AMERICAN 14 ML/MIN (>=60); GLUCOSE, SERUM 175 MG/DL (60-99); PHOSPHORUS, SERUM 5.9 MG/DL (2.5-4.5); POTASSIUM, SERUM 4.1 MMOL/L (3.5-5.3); SODIUM, SERUM 146 MMOL/L (135-148)
[2016-05-06 06:40] LABS: BASOPHILS 0 %; EOSINOPHILS 0.1 %; EOSINOPHILS ABSOLUTE 0.01 10/3/uL (0.0-0.53); HEMATOCRIT 26.1 % (36.0-48.0); HEMOGLOBIN 8.2 g/dL (12.0-16.0); IMMATURE GRANULOCYTES 0.8 %; IMMATURE GRANULOCYTES ABSOLUTE 0.11 10/3/uL (0.0-0.11); LYMPHOCYTES 1.9 %; LYMPHOCYTES ABSOLUTE 0.28 10/3/uL (0.67-4.30); MEAN CORPUS HGB CONC 31.4 g/dL (32.0-36.0); MEAN CORPUSCULAR HEMOGLOB 31.5 pg (26.0-34.0); MEAN CORPUSCULAR VOLUME 100.4 fL (80-100); MEAN PLATELET VOLUME 10.1 fL (9.2-13.0); MONOCYTES 1.9 %; MONOCYTES ABSOLUTE 0.27 10/3/uL (0.21-1.20); NEUTROPHILS 95.3 %; NEUTROPHILS ABSOLUTE 13.71 10/3/uL (2.02-8.40); PLATELET COUNT 157 10/3/uL (150-400); RBC DISTRIBUTION WIDTH 16.2 % (12.0-16.0); WHITE BLOOD CELLS 14.4 10/3/uL (4.5-10.5)
[2016-05-06 06:43] LABS: MANUAL DIFF NO %
[2016-05-06 06:58] LABS: ALBUMIN 2.4 G/DL (3.5-5.0); CALCIUM, SERUM 7.7 MG/DL (8.5-10.4); CHLORIDE, SERUM 112 MMOL/L (96-112); CO2 (CARBON DIOXIDE) 22 MMOL/L (24-34); GLUCOSE, SERUM 163 MG/DL (60-99); SODIUM, SERUM 147 MMOL/L (135-148)
[2016-05-06 06:59] LABS: BUN (BLOOD UREA NITROGEN) 32 MG/DL (6-23); CREATININE 2.49 MG/DL (0.55-1.02); GFR AFRICAN AMERICAN 24 ML/MIN (>=60); GFR NON AFRICAN AMERICAN 21 ML/MIN (>=60); PHOSPHORUS, SERUM 3.6 MG/DL (2.5-4.5); POTASSIUM, SERUM 4.5 MMOL/L (3.5-5.3)
[2016-05-06 15:36] LABS: BE (BASE EXCESS) -3.6 MEQ/L (0 +/- 2.5); CARBOXYHEMOGLOBIN 0.1 % (0-3); HCO3 (ACTUAL BICARBONATE) 21.1 MEQ/L (23-27); HEMOBLOGIN CONTENT 10.1 G/DL (12-16); INSTRUMENT SERIAL # 8083; METHEMOGLOBIN 0.4 % (0-3); MODE CMV; O2 CONTENT 15.3 VOL% (18-24); OPERATOR ID 18642; PCO2 (CO2 TENSION) 37 MMHG (35-45); PO2 (O2 TENSION) 437 MMHG (79-93); SAMPLE Arterial; TIDAL VOLUME 400 ML; pH 7.38 (7.37-7.43)
[2016-05-06 17:21] LABS: A/G RATIO 0.6 (0.7-1.9); ALBUMIN 2.7 G/DL (3.5-5.0); ALKALINE PHOSPHATASE 127 U/L (45-117); CALCIUM, SERUM 7.8 MG/DL (8.5-10.4); CHLORIDE, SERUM 112 MMOL/L (96-112); CO2 (CARBON DIOXIDE) 25 MMOL/L (24-34); CREATININE 2.95 MG/DL (0.55-1.02); FREE T4 1.32 NG/DL (0.76-1.46); GFR AFRICAN AMERICAN 20 ML/MIN (>=60); GFR NON AFRICAN AMERICAN 17 ML/MIN (>=60); GLOBULIN 4.3 G/DL (2.5-4.1); GLUCOSE, SERUM 164 MG/DL (60-99); POTASSIUM, SERUM 4.4 MMOL/L (3.5-5.3); PREALBUMIN 15.6 MG/DL (17.0-43.0); SGOT(AST) 16 U/L (5-40); SGPT(ALT) 23 U/L (5-65); SODIUM, SERUM 147 MMOL/L (135-148)
[2016-05-06 17:23] LABS: BUN (BLOOD UREA NITROGEN) 38 MG/DL (6-23); TOTAL BILIRUBIN 1.4 MG/DL (0-1.2); TROPONIN I 0.15 NG/ML (<0.05)
[2016-05-06 17:55] LABS: PROCALCITONIN 4.82 ng/mL (<0.5)
[2016-05-07 04:06] LABS: BE (BASE EXCESS) -3.6 MEQ/L (0 +/- 2.5); CARBOXYHEMOGLOBIN 1.2 % (0-3); HEMOBLOGIN CONTENT 7.7 G/DL (12-16); INSTRUMENT SERIAL # 8083; METHEMOGLOBIN 0.5 % (0-3); MODE CMV; O2 CONTENT 10.8 VOL% (18-24); OPERATOR ID 14661; PCO2 (CO2 TENSION) 30 MMHG (35-45); PO2 (O2 TENSION) 138 MMHG (79-93); SAMPLE Arterial; TIDAL VOLUME 400 ML; pH 7.44 (7.37-7.43)
[2016-05-07 05:11] LABS: TROPONIN I 0.27 NG/ML (<0.05)
[2016-05-07 06:55] LABS: ALBUMIN 2.3 G/DL (3.5-5.0); CALCIUM, SERUM 7.5 MG/DL (8.5-10.4); CHLORIDE, SERUM 111 MMOL/L (96-112); CREATININE 3.29 MG/DL (0.55-1.02); GFR AFRICAN AMERICAN 17 ML/MIN (>=60); GFR NON AFRICAN AMERICAN 15 ML/MIN (>=60); GLUCOSE, SERUM 148 MG/DL (60-99); PHOSPHORUS, SERUM 4.3 MG/DL (2.5-4.5); SODIUM, SERUM 144 MMOL/L (135-148)
[2016-05-07 06:56] LABS: BUN (BLOOD UREA NITROGEN) 49 MG/DL (6-23); CO2 (CARBON DIOXIDE) 19 MMOL/L (24-34)
[2016-05-07 06:57] LABS: POTASSIUM, SERUM 4.5 MMOL/L (3.5-5.3)
[2016-05-07 11:36] LABS: PROCALCITONIN 4.56 ng/mL (<0.5)
[2016-05-07 12:06] LABS: BASOPHILS 0.1 %; BASOPHILS ABSOLUTE 0.01 10/3/uL (0.0-0.16); EOSINOPHILS 0.4 %; EOSINOPHILS ABSOLUTE 0.05 10/3/uL (0.0-0.53); HEMATOCRIT 24.8 % (36.0-48.0); HEMOGLOBIN 7.8 g/dL (12.0-16.0); IMMATURE GRANULOCYTES ABSOLUTE 0.12 10/3/uL (0.0-0.11); LYMPHOCYTES 5.1 %; MEAN CORPUS HGB CONC 31.5 g/dL (32.0-36.0); MEAN CORPUSCULAR HEMOGLOB 31.3 pg (26.0-34.0); MEAN CORPUSCULAR VOLUME 99.6 fL (80-100); MEAN PLATELET VOLUME 10.8 fL (9.2-13.0); MONOCYTES 2.7 %; MONOCYTES ABSOLUTE 0.32 10/3/uL (0.21-1.20); NEUTROPHILS 90.7 %; NEUTROPHILS ABSOLUTE 10.57 10/3/uL (2.02-8.40); RBC DISTRIBUTION WIDTH 16.1 % (12.0-16.0); RED CELL COUNT 2.49 10/6/uL (4.0-5.6); WHITE BLOOD CELLS 11.7 10/3/uL (4.5-10.5)
[2016-05-07 12:07] LABS: MANUAL DIFF NO %; PLATELET COUNT 83 10/3/uL (150-400)
[2016-05-08 04:09] LABS: CARBOXYHEMOGLOBIN 0.7 % (0-3); HCO3 (ACTUAL BICARBONATE) 16.7 MEQ/L (23-27); HEMOBLOGIN CONTENT 7.9 G/DL (12-16); INSTRUMENT SERIAL # 35151; METHEMOGLOBIN 0.8 % (0-3); MODE CMV; OPERATOR ID 31061; PCO2 (CO2 TENSION) 35 MMHG (35-45); PO2 (O2 TENSION) 128 MMHG (79-93); SAMPLE Arterial; TIDAL VOLUME 400 ML; pH 7.29 (7.37-7.43)
[2016-05-08 04:55] LABS: BASOPHILS 0 %; EOSINOPHILS 0.9 %; HEMATOCRIT 22.8 % (36.0-48.0); HEMOGLOBIN 7.4 g/dL (12.0-16.0); IMMATURE GRANULOCYTES 0.7 %; IMMATURE GRANULOCYTES ABSOLUTE 0.08 10/3/uL (0.0-0.11); LYMPHOCYTES ABSOLUTE 0.68 10/3/uL (0.67-4.30); MEAN CORPUS HGB CONC 32.5 g/dL (32.0-36.0); MEAN CORPUSCULAR HEMOGLOB 31.9 pg (26.0-34.0); MEAN CORPUSCULAR VOLUME 98.3 fL (80-100); MONOCYTES ABSOLUTE 0.46 10/3/uL (0.21-1.20); NEUTROPHILS 88.4 %; NEUTROPHILS ABSOLUTE 10.08 10/3/uL (2.02-8.40); PLATELET COUNT 66 10/3/uL (150-400); RBC DISTRIBUTION WIDTH 16.3 % (12.0-16.0); RED CELL COUNT 2.32 10/6/uL (4.0-5.6); WHITE BLOOD CELLS 11.4 10/3/uL (4.5-10.5)
[2016-05-08 04:59] LABS: MANUAL DIFF NO %
[2016-05-08 05:10] LABS: ALBUMIN 1.9 G/DL (3.5-5.0); CHLORIDE, SERUM 107 MMOL/L (96-112); CO2 (CARBON DIOXIDE) 19 MMOL/L (24-34); CREATININE 3.59 MG/DL (0.55-1.02); GFR AFRICAN AMERICAN 16 ML/MIN (>=60); GFR NON AFRICAN AMERICAN 14 ML/MIN (>=60); GLUCOSE, SERUM 130 MG/DL (60-99); PHOSPHORUS, SERUM 4.9 MG/DL (2.5-4.5); POTASSIUM, SERUM 4.3 MMOL/L (3.5-5.3); SODIUM, SERUM 141 MMOL/L (135-148)
[2016-05-08 05:28] LABS: BUN (BLOOD UREA NITROGEN) 66 MG/DL (6-23)
[2016-05-08 05:29] LABS: CALCIUM, SERUM 6.8 MG/DL (8.5-10.4)
[2016-05-08 11:15] LABS: HIT PTT 45.5 SEC (22.5-37.2)
[2016-05-08 11:37] LABS: INTERNATIONAL NORMAL RATI 2.2 UNITS (-); PROTIME (NOT ORD) 24.2 SEC (12.0-14.5)
[2016-05-09 04:02] LABS: ALLENS TEST Pos; BE (BASE EXCESS) -1.5 MEQ/L (0 +/- 2.5); CARBOXYHEMOGLOBIN 0.4 % (0-3); HCO3 (ACTUAL BICARBONATE) 23.2 MEQ/L (23-27); HEMOBLOGIN CONTENT 10.1 G/DL (12-16); INSTRUMENT SERIAL # 8083; METHEMOGLOBIN 0.3 % (0-3); MODE CMV; O2 CONTENT 14.2 VOL% (18-24); OPERATOR ID 16503; PCO2 (CO2 TENSION) 39 MMHG (35-45); PO2 (O2 TENSION) 137 MMHG (79-93); SAMPLE Arterial; TIDAL VOLUME 400 ML
[2016-05-09 04:59] LABS: HEMOGLOBIN 7.9 g/dL (12.0-16.0); MEAN CORPUSCULAR HEMOGLOB 31.1 pg (26.0-34.0); MEAN PLATELET VOLUME 12.4 fL (9.2-13.0); NUCLEATED RED BLOOD CELLS 0.5 /100WBC (0-0); PLATELET COUNT 70 10/3/uL (150-400); RBC DISTRIBUTION WIDTH 16.5 % (12.0-16.0); RED CELL COUNT 2.54 10/6/uL (4.0-5.6); WHITE BLOOD CELLS 13.1 10/3/uL (4.5-10.5)
[2016-05-09 05:00] LABS: HEMATOCRIT 25.9 % (36.0-48.0); MANUAL DIFF YES %; MEAN CORPUS HGB CONC 30.5 g/dL (32.0-36.0)
[2016-05-09 05:20] LABS: ALBUMIN 1.7 G/DL (3.5-5.0); CHLORIDE, SERUM 105 MMOL/L (96-112); CO2 (CARBON DIOXIDE) 21 MMOL/L (24-34); SODIUM, SERUM 140 MMOL/L (135-148); TOTAL BILIRUBIN 1.5 MG/DL (0-1.2)
[2016-05-09 05:33] LABS: A/G RATIO 0.5 (0.7-1.9); ALKALINE PHOSPHATASE 106 U/L (45-117); BUN (BLOOD UREA NITROGEN) 43 MG/DL (6-23); CALCIUM, SERUM 6.5 MG/DL (8.5-10.4); CREATININE 2.36 MG/DL (0.55-1.02); GFR AFRICAN AMERICAN 26 ML/MIN (>=60); GFR NON AFRICAN AMERICAN 22 ML/MIN (>=60); GLOBULIN 3.5 G/DL (2.5-4.1); GLUCOSE, SERUM 93 MG/DL (60-99); POTASSIUM, SERUM 4.2 MMOL/L (3.5-5.3); TOTAL PROTEIN 5.2 G/DL (6.0-8.5)
[2016-05-09 05:45] LABS: LYMPHOCYTES 4 %; LYMPHOCYTES ABSOLUTE (CALC) 0.52 10/3/uL (0.67-4.30); MACROCYTES 1+ (5-10/OIF) (0-5/OIF); MONOCYTES 4 %; MONOCYTES ABSOLUTE (CALC) 0.52 10/3/uL (0.21-1.20); NEUTROPHILS ABSOLUTE (CALC) 12.05 10/3/uL (2.02-8.40); PLATELET ESTIMATE DEC (ADEQUATE); SEGMENTED NEUTROPHIL (0) 92 %; TOTAL NUCLEATED CELLS 100
[2016-05-09 05:54] LABS: SGOT(AST) 344 U/L (5-40); SGPT(ALT) 232 U/L (5-65)
[2016-05-09 09:58] LABS: INTERNATIONAL NORMAL RATI 1.8 UNITS (-); PROTIME (NOT ORD) 20.9 SEC (12.0-14.5)
[2016-05-09 10:48] LABS: SGOT(AST) 398 U/L (5-40); SGPT(ALT) 298 U/L (5-65)
[2016-05-10 06:35] LABS: BASOPHILS 0.1 %; BASOPHILS ABSOLUTE 0.01 10/3/uL (0.0-0.16); EOSINOPHILS 1.5 %; EOSINOPHILS ABSOLUTE 0.14 10/3/uL (0.0-0.53); HEMATOCRIT 23.7 % (36.0-48.0); HEMOGLOBIN 7.4 g/dL (12.0-16.0); IMMATURE GRANULOCYTES 0.8 %; IMMATURE GRANULOCYTES ABSOLUTE 0.07 10/3/uL (0.0-0.11); LYMPHOCYTES 4.3 %; LYMPHOCYTES ABSOLUTE 0.39 10/3/uL (0.67-4.30); MEAN CORPUS HGB CONC 31.2 g/dL (32.0-36.0); MEAN CORPUSCULAR VOLUME 99.2 fL (80-100); MEAN PLATELET VOLUME 12.2 fL (9.2-13.0); MONOCYTES 2.6 %; MONOCYTES ABSOLUTE 0.24 10/3/uL (0.21-1.20); NEUTROPHILS 90.7 %; NEUTROPHILS ABSOLUTE 8.29 10/3/uL (2.02-8.40); PLATELET COUNT 53 10/3/uL (150-400); RBC DISTRIBUTION WIDTH 16.3 % (12.0-16.0); RED CELL COUNT 2.39 10/6/uL (4.0-5.6); WHITE BLOOD CELLS 9.1 10/3/uL (4.5-10.5)
[2016-05-10 06:36] LABS: INTERNATIONAL NORMAL RATI 1.7 UNITS (-); MANUAL DIFF NO %; PROTIME (NOT ORD) 19.5 SEC (12.0-14.5)
[2016-05-10 06:56] LABS: A/G RATIO 0.5 (0.7-1.9); ALBUMIN 1.8 G/DL (3.5-5.0); ALKALINE PHOSPHATASE 106 U/L (45-117); BUN (BLOOD UREA NITROGEN) 51 MG/DL (6-23); CALCIUM, SERUM 7.5 MG/DL (8.5-10.4); CHLORIDE, SERUM 105 MMOL/L (96-112); CO2 (CARBON DIOXIDE) 21 MMOL/L (24-34); GFR AFRICAN AMERICAN 20 ML/MIN (>=60); GFR NON AFRICAN AMERICAN 17 ML/MIN (>=60); GLOBULIN 3.5 G/DL (2.5-4.1); GLUCOSE, SERUM 82 MG/DL (60-99); PHOSPHORUS, SERUM 3.8 MG/DL (2.5-4.5); POTASSIUM, SERUM 4.1 MMOL/L (3.5-5.3); SGOT(AST) 405 U/L (5-40); SGPT(ALT) 369 U/L (5-65); SODIUM, SERUM 139 MMOL/L (135-148); TOTAL PROTEIN 5.3 G/DL (6.0-8.5)
[2016-05-10 07:03] LABS: PLATELET ESTIMATE DEC (ADEQUATE)
[2016-05-10 07:04] LABS: RBC MORPHOLOGY NORM (NORMAL)
[2016-05-10 08:25] LABS: PREALBUMIN 9.4 MG/DL (17.0-43.0)
[2016-05-10 13:38] LABS: HEPARIN-INDUCED PLATELET AB NEGATIVE (NEGATIVE)
[2016-05-10 13:39] LABS: HIT PATIENT O.D. 0.024 OD (0.000-0.299)
[2016-05-11 04:36] LABS: BASOPHILS 0.1 %; BASOPHILS ABSOLUTE 0.01 10/3/uL (0.0-0.16); EOSINOPHILS 1.8 %; EOSINOPHILS ABSOLUTE 0.15 10/3/uL (0.0-0.53); IMMATURE GRANULOCYTES 0.5 %; IMMATURE GRANULOCYTES ABSOLUTE 0.04 10/3/uL (0.0-0.11); LYMPHOCYTES 4.8 %; MEAN CORPUS HGB CONC 31.4 g/dL (32.0-36.0); MEAN CORPUSCULAR HEMOGLOB 31.1 pg (26.0-34.0); MEAN PLATELET VOLUME 12.1 fL (9.2-13.0); MONOCYTES 2.1 %; MONOCYTES ABSOLUTE 0.17 10/3/uL (0.21-1.20); NEUTROPHILS 90.7 %; NEUTROPHILS ABSOLUTE 7.51 10/3/uL (2.02-8.40); PLATELET COUNT 56 10/3/uL (150-400); RBC DISTRIBUTION WIDTH 16.8 % (12.0-16.0); RED CELL COUNT 1.93 10/6/uL (4.0-5.6); WHITE BLOOD CELLS 8.3 10/3/uL (4.5-10.5)
[2016-05-11 04:37] LABS: INTERNATIONAL NORMAL RATI 1.9 UNITS (-); PROTIME (NOT ORD) 21.2 SEC (12.0-14.5)
[2016-05-11 04:38] LABS: HEMATOCRIT 19.1 % (36.0-48.0); MANUAL DIFF NO %
[2016-05-11 04:56] LABS: A/G RATIO 0.5 (0.7-1.9); ALBUMIN 1.6 G/DL (3.5-5.0); ALKALINE PHOSPHATASE 101 U/L (45-117); CHLORIDE, SERUM 108 MMOL/L (96-112); CO2 (CARBON DIOXIDE) 25 MMOL/L (24-34); GLOBULIN 3.2 G/DL (2.5-4.1); GLUCOSE, SERUM 73 MG/DL (60-99); POTASSIUM, SERUM 3.8 MMOL/L (3.5-5.3); SGOT(AST) 152 U/L (5-40); SGPT(ALT) 255 U/L (5-65); SODIUM, SERUM 143 MMOL/L (135-148); TOTAL BILIRUBIN 1.1 MG/DL (0-1.2); TOTAL PROTEIN 4.8 G/DL (6.0-8.5)
[2016-05-11 04:57] LABS: BUN (BLOOD UREA NITROGEN) 30 MG/DL (6-23); CALCIUM, SERUM 6.6 MG/DL (8.5-10.4); CREATININE 1.89 MG/DL (0.55-1.02); GFR AFRICAN AMERICAN 34 ML/MIN (>=60); GFR NON AFRICAN AMERICAN 29 ML/MIN (>=60)
[2016-05-11 05:10] LABS: PLATELET ESTIMATE DEC (ADEQUATE)
[2016-05-11 05:11] LABS: ANISOCYTOSIS 1+ (5-10/OIF) (0-5/OIF); HYPOCHROMIA 1+ (3-10/OIF) (0-2/OIF)
[2016-05-12 07:45] LABS: BASOPHILS 0.1 %; BASOPHILS ABSOLUTE 0.01 10/3/uL (0.0-0.16); EOSINOPHILS 2.3 %; EOSINOPHILS ABSOLUTE 0.25 10/3/uL (0.0-0.53); IMMATURE GRANULOCYTES 0.4 %; IMMATURE GRANULOCYTES ABSOLUTE 0.04 10/3/uL (0.0-0.11); LYMPHOCYTES 3.3 %; LYMPHOCYTES ABSOLUTE 0.36 10/3/uL (0.67-4.30); MEAN CORPUS HGB CONC 32.7 g/dL (32.0-36.0); MEAN CORPUSCULAR HEMOGLOB 30.8 pg (26.0-34.0); MEAN PLATELET VOLUME 11.4 fL (9.2-13.0); MONOCYTES 2.9 %; MONOCYTES ABSOLUTE 0.31 10/3/uL (0.21-1.20); PLATELET COUNT 58 10/3/uL (150-400); RBC DISTRIBUTION WIDTH 18.7 % (12.0-16.0); WHITE BLOOD CELLS 10.9 10/3/uL (4.5-10.5)
[2016-05-12 07:48] LABS: INTERNATIONAL NORMAL RATI 1.7 UNITS (-); PROTIME (NOT ORD) 19.9 SEC (12.0-14.5)
[2016-05-12 07:51] LABS: HEMATOCRIT 24.5 % (36.0-48.0)
[2016-05-12 07:52] LABS: MANUAL DIFF NO %; MEAN CORPUSCULAR VOLUME 94.2 fL (80-100)
[2016-05-12 07:58] LABS: A/G RATIO 0.5 (0.7-1.9); ALBUMIN 1.8 G/DL (3.5-5.0); ALKALINE PHOSPHATASE 122 U/L (45-117); BUN (BLOOD UREA NITROGEN) 44 MG/DL (6-23); CALCIUM, SERUM 6.8 MG/DL (8.5-10.4); CHLORIDE, SERUM 106 MMOL/L (96-112); CO2 (CARBON DIOXIDE) 23 MMOL/L (24-34); CREATININE 2.57 MG/DL (0.55-1.02); GFR AFRICAN AMERICAN 23 ML/MIN (>=60); GFR NON AFRICAN AMERICAN 20 ML/MIN (>=60); GLOBULIN 3.9 G/DL (2.5-4.1); GLUCOSE, SERUM 112 MG/DL (60-99); POTASSIUM, SERUM 3.9 MMOL/L (3.5-5.3); SGOT(AST) 48 U/L (5-40); SGPT(ALT) 172 U/L (5-65); SODIUM, SERUM 141 MMOL/L (135-148); TOTAL BILIRUBIN 1.6 MG/DL (0-1.2); TOTAL PROTEIN 5.7 G/DL (6.0-8.5)
[2016-05-12 08:42] LABS: ANISOCYTOSIS 1+ (5-10/OIF) (0-5/OIF); HYPOCHROMIA 1+ (3-10/OIF) (0-2/OIF); OVALOCYTES 1+ (3-10/OIF) (0-2/OIF)
[2016-05-12 08:43] LABS: POLYCHROMASIA 1+ (2-5/OIF) (0-1/OIF)
[2016-05-13 04:37] LABS: BASOPHILS 0.1 %; BASOPHILS ABSOLUTE 0.01 10/3/uL (0.0-0.16); EOSINOPHILS 2.5 %; HEMATOCRIT 25.1 % (36.0-48.0); HEMOGLOBIN 8.1 g/dL (12.0-16.0); IMMATURE GRANULOCYTES 0.8 %; IMMATURE GRANULOCYTES ABSOLUTE 0.06 10/3/uL (0.0-0.11); LYMPHOCYTES 5.1 %; LYMPHOCYTES ABSOLUTE 0.41 10/3/uL (0.67-4.30); MEAN CORPUS HGB CONC 32.3 g/dL (32.0-36.0); MEAN CORPUSCULAR HEMOGLOB 30.9 pg (26.0-34.0); MEAN CORPUSCULAR VOLUME 95.8 fL (80-100); MEAN PLATELET VOLUME 11.2 fL (9.2-13.0); MONOCYTES 2.9 %; MONOCYTES ABSOLUTE 0.23 10/3/uL (0.21-1.20); NEUTROPHILS 88.6 %; NEUTROPHILS ABSOLUTE 7.06 10/3/uL (2.02-8.40); PLATELET COUNT 62 10/3/uL (150-400); RBC DISTRIBUTION WIDTH 18.2 % (12.0-16.0); RED CELL COUNT 2.62 10/6/uL (4.0-5.6)
[2016-05-13 04:40] LABS: MANUAL DIFF NO %
[2016-05-13 04:56] LABS: ALKALINE PHOSPHATASE 128 U/L (45-117); CALCIUM, SERUM 7.3 MG/DL (8.5-10.4); CHLORIDE, SERUM 105 MMOL/L (96-112); CO2 (CARBON DIOXIDE) 27 MMOL/L (24-34); POTASSIUM, SERUM 3.7 MMOL/L (3.5-5.3); PREALBUMIN 9.4 MG/DL (17.0-43.0); SGOT(AST) 26 U/L (5-40); SGPT(ALT) 112 U/L (5-65); SODIUM, SERUM 140 MMOL/L (135-148); TOTAL PROTEIN 5.7 G/DL (6.0-8.5)
[2016-05-13 05:03] LABS: A/G RATIO 0.6 (0.7-1.9); ALBUMIN 2.2 G/DL (3.5-5.0); BUN (BLOOD UREA NITROGEN) 27 MG/DL (6-23); GFR AFRICAN AMERICAN 34 ML/MIN (>=60); GFR NON AFRICAN AMERICAN 29 ML/MIN (>=60); GLOBULIN 3.5 G/DL (2.5-4.1); GLUCOSE, SERUM 148 MG/DL (60-99); PHOSPHORUS, SERUM 2.3 MG/DL (2.5-4.5)
[2016-05-13 05:34] LABS: ANISOCYTOSIS 1+ (5-10/OIF) (0-5/OIF); PLATELET ESTIMATE DEC (ADEQUATE)
[2016-05-14 04:56] LABS: INTERNATIONAL NORMAL RATI 1.5 UNITS (-); PROTIME (NOT ORD) 18.4 SEC (12.0-14.5)
[2016-05-14 04:57] LABS: HEMATOCRIT 24.3 % (36.0-48.0); HEMOGLOBIN 7.9 g/dL (12.0-16.0); MEAN CORPUS HGB CONC 32.5 g/dL (32.0-36.0); MEAN CORPUSCULAR HEMOGLOB 31.5 pg (26.0-34.0); MEAN CORPUSCULAR VOLUME 96.8 fL (80-100); MEAN PLATELET VOLUME 11.7 fL (9.2-13.0); RBC DISTRIBUTION WIDTH 18.1 % (12.0-16.0); RED CELL COUNT 2.51 10/6/uL (4.0-5.6); WHITE BLOOD CELLS 8.2 10/3/uL (4.5-10.5)
[2016-05-14 04:58] LABS: MANUAL DIFF YES %; PLATELET COUNT 84 10/3/uL (150-400)
[2016-05-14 05:08] LABS: A/G RATIO 0.6 (0.7-1.9); CHLORIDE, SERUM 105 MMOL/L (96-112); CO2 (CARBON DIOXIDE) 26 MMOL/L (24-34); CREATININE 1.42 MG/DL (0.55-1.02); GFR AFRICAN AMERICAN 48 ML/MIN (>=60); GFR NON AFRICAN AMERICAN 41 ML/MIN (>=60); GLOBULIN 3.6 G/DL (2.5-4.1); POTASSIUM, SERUM 3.5 MMOL/L (3.5-5.3); SGOT(AST) 21 U/L (5-40); SGPT(ALT) 82 U/L (5-65); SODIUM, SERUM 143 MMOL/L (135-148); TOTAL BILIRUBIN 1.3 MG/DL (0-1.2); TOTAL PROTEIN 5.6 G/DL (6.0-8.5)
[2016-05-14 05:18] LABS: ANISOCYTOSIS 1+ (5-10/OIF) (0-5/OIF); BAND NEUTROPHILS 1 %; EOSINOPHILS 3 %; EOSINOPHILS ABSOLUTE (CALC) 0.25 10/3/uL (0.0-0.53); LYMPHOCYTES 2 %; LYMPHOCYTES ABSOLUTE (CALC) 0.16 10/3/uL (0.67-4.30); MONOCYTES 2 %; MONOCYTES ABSOLUTE (CALC) 0.16 10/3/uL (0.21-1.20); NEUTROPHILS ABSOLUTE (CALC) 7.63 10/3/uL (2.02-8.40); PLATELET ESTIMATE DEC (ADEQUATE); SEGMENTED NEUTROPHIL (0) 92 %; TOTAL NUCLEATED CELLS 100
[2016-05-14 05:27] LABS: ALKALINE PHOSPHATASE 150 U/L (45-117); BUN (BLOOD UREA NITROGEN) 21 MG/DL (6-23); GLUCOSE, SERUM 113 MG/DL (60-99)
[2016-05-15 07:16] LABS: BASOPHILS 0.1 %; BASOPHILS ABSOLUTE 0.01 10/3/uL (0.0-0.16); EOSINOPHILS 3.2 %; EOSINOPHILS ABSOLUTE 0.25 10/3/uL (0.0-0.53); HEMATOCRIT 23.3 % (36.0-48.0); HEMOGLOBIN 7.3 g/dL (12.0-16.0); IMMATURE GRANULOCYTES 0.8 %; IMMATURE GRANULOCYTES ABSOLUTE 0.06 10/3/uL (0.0-0.11); LYMPHOCYTES 6.2 %; LYMPHOCYTES ABSOLUTE 0.48 10/3/uL (0.67-4.30); MEAN CORPUS HGB CONC 31.3 g/dL (32.0-36.0); MEAN CORPUSCULAR HEMOGLOB 30.7 pg (26.0-34.0); MEAN CORPUSCULAR VOLUME 97.9 fL (80-100); MEAN PLATELET VOLUME 10.6 fL (9.2-13.0); MONOCYTES 5.4 %; MONOCYTES ABSOLUTE 0.42 10/3/uL (0.21-1.20); NEUTROPHILS 84.3 %; NEUTROPHILS ABSOLUTE 6.58 10/3/uL (2.02-8.40); RED CELL COUNT 2.38 10/6/uL (4.0-5.6); WHITE BLOOD CELLS 7.8 10/3/uL (4.5-10.5)
[2016-05-15 07:17] LABS: MANUAL DIFF NO %; PLATELET COUNT 111 10/3/uL (150-400)
[2016-05-15 07:43] LABS: ALBUMIN 2.1 G/DL (3.5-5.0); BUN (BLOOD UREA NITROGEN) 22 MG/DL (6-23); CALCIUM, SERUM 6.9 MG/DL (8.5-10.4); CHLORIDE, SERUM 106 MMOL/L (96-112); CO2 (CARBON DIOXIDE) 28 MMOL/L (24-34); CREATININE 1.41 MG/DL (0.55-1.02); GFR AFRICAN AMERICAN 48 ML/MIN (>=60); GFR NON AFRICAN AMERICAN 42 ML/MIN (>=60); GLUCOSE, SERUM 158 MG/DL (60-99); PHOSPHORUS, SERUM 1.8 MG/DL (2.5-4.5); POTASSIUM, SERUM 3.7 MMOL/L (3.5-5.3); SODIUM, SERUM 142 MMOL/L (135-148)
[2016-05-16 07:03] LABS: BASOPHILS 0.1 %; BASOPHILS ABSOLUTE 0.01 10/3/uL (0.0-0.16); EOSINOPHILS 3.1 %; EOSINOPHILS ABSOLUTE 0.24 10/3/uL (0.0-0.53); HEMATOCRIT 23.9 % (36.0-48.0); HEMOGLOBIN 7.4 g/dL (12.0-16.0); IMMATURE GRANULOCYTES 0.8 %; IMMATURE GRANULOCYTES ABSOLUTE 0.06 10/3/uL (0.0-0.11); LYMPHOCYTES 7.1 %; LYMPHOCYTES ABSOLUTE 0.55 10/3/uL (0.67-4.30); MEAN CORPUSCULAR HEMOGLOB 30.7 pg (26.0-34.0); MEAN CORPUSCULAR VOLUME 99.2 fL (80-100); MEAN PLATELET VOLUME 10.6 fL (9.2-13.0); MONOCYTES 5.6 %; MONOCYTES ABSOLUTE 0.43 10/3/uL (0.21-1.20); NEUTROPHILS 83.3 %; NEUTROPHILS ABSOLUTE 6.45 10/3/uL (2.02-8.40); PLATELET COUNT 118 10/3/uL (150-400); RBC DISTRIBUTION WIDTH 18.1 % (12.0-16.0); RED CELL COUNT 2.41 10/6/uL (4.0-5.6); WHITE BLOOD CELLS 7.7 10/3/uL (4.5-10.5)
[2016-05-16 07:11] LABS: MANUAL DIFF NO %
[2016-05-16 07:13] LABS: CALCIUM, SERUM 7.3 MG/DL (8.5-10.4); CHLORIDE, SERUM 103 MMOL/L (96-112); CO2 (CARBON DIOXIDE) 27 MMOL/L (24-34); GLUCOSE, SERUM 156 MG/DL (60-99); POTASSIUM, SERUM 3.8 MMOL/L (3.5-5.3); SODIUM, SERUM 140 MMOL/L (135-148)
[2016-05-16 07:15] LABS: BUN (BLOOD UREA NITROGEN) 35 MG/DL (6-23); CREATININE 2.14 MG/DL (0.55-1.02); GFR AFRICAN AMERICAN 29 ML/MIN (>=60); GFR NON AFRICAN AMERICAN 25 ML/MIN (>=60); PHOSPHORUS, SERUM 3.8 MG/DL (2.5-4.5)
[2016-05-17 09:39] LABS: BASOPHILS 0 %; EOSINOPHILS ABSOLUTE 0.24 10/3/uL (0.0-0.53); IMMATURE GRANULOCYTES 0.6 %; IMMATURE GRANULOCYTES ABSOLUTE 0.05 10/3/uL (0.0-0.11); LYMPHOCYTES 8.4 %; LYMPHOCYTES ABSOLUTE 0.68 10/3/uL (0.67-4.30); MEAN CORPUS HGB CONC 32.5 g/dL (32.0-36.0); MEAN CORPUSCULAR HEMOGLOB 31.5 pg (26.0-34.0); MEAN CORPUSCULAR VOLUME 96.7 fL (80-100); MEAN PLATELET VOLUME 10.1 fL (9.2-13.0); MONOCYTES 4.1 %; MONOCYTES ABSOLUTE 0.33 10/3/uL (0.21-1.20); NEUTROPHILS 83.9 %; NEUTROPHILS ABSOLUTE 6.77 10/3/uL (2.02-8.40); PLATELET COUNT 122 10/3/uL (150-400); RBC DISTRIBUTION WIDTH 17.8 % (12.0-16.0); RED CELL COUNT 2.13 10/6/uL (4.0-5.6); WHITE BLOOD CELLS 8.1 10/3/uL (4.5-10.5)
[2016-05-17 09:45] LABS: HEMATOCRIT 20.6 % (36.0-48.0); HEMOGLOBIN 6.7 g/dL (12.0-16.0)
[2016-05-17 09:47] LABS: MANUAL DIFF NO %
[2016-05-17 10:02] LABS: CALCIUM, SERUM 7.2 MG/DL (8.5-10.4); CHLORIDE, SERUM 103 MMOL/L (96-112); CO2 (CARBON DIOXIDE) 26 MMOL/L (24-34); FREE T4 1.29 NG/DL (0.76-1.46); GLUCOSE, SERUM 146 MG/DL (60-99); PHOSPHORUS, SERUM 4.5 MG/DL (2.5-4.5); POTASSIUM, SERUM 4.1 MMOL/L (3.5-5.3); SODIUM, SERUM 139 MMOL/L (135-148)
[2016-05-17 10:03] LABS: BUN (BLOOD UREA NITROGEN) 53 MG/DL (6-23); GFR AFRICAN AMERICAN 20 ML/MIN (>=60); GFR NON AFRICAN AMERICAN 17 ML/MIN (>=60)
[2016-05-17 10:35] LABS: SED RATE 107 MM/HR (0-20)
[2016-05-18 06:58] LABS: HEMATOCRIT 28.5 % (36.0-48.0); HEMOGLOBIN 9.3 g/dL (12.0-16.0); MEAN CORPUS HGB CONC 32.6 g/dL (32.0-36.0); MEAN CORPUSCULAR HEMOGLOB 30.4 pg (26.0-34.0); MEAN CORPUSCULAR VOLUME 93.1 fL (80-100); MEAN PLATELET VOLUME 10.6 fL (9.2-13.0); PLATELET COUNT 139 10/3/uL (150-400); RBC DISTRIBUTION WIDTH 17.9 % (12.0-16.0); RED CELL COUNT 3.06 10/6/uL (4.0-5.6); WHITE BLOOD CELLS 9.1 10/3/uL (4.5-10.5)
[2016-05-18 06:59] LABS: MANUAL DIFF YES %
[2016-05-18 07:06] LABS: CHLORIDE, SERUM 105 MMOL/L (96-112); CO2 (CARBON DIOXIDE) 24 MMOL/L (24-34); GLUCOSE, SERUM 154 MG/DL (60-99); SODIUM, SERUM 143 MMOL/L (135-148)
[2016-05-18 07:07] LABS: BUN (BLOOD UREA NITROGEN) 35 MG/DL (6-23); CALCIUM, SERUM 6.8 MG/DL (8.5-10.4); CREATININE 2.11 MG/DL (0.55-1.02); GFR AFRICAN AMERICAN 30 ML/MIN (>=60); GFR NON AFRICAN AMERICAN 26 ML/MIN (>=60); PHOSPHORUS, SERUM 3.3 MG/DL (2.5-4.5)
[2016-05-18 08:18] LABS: ANISOCYTOSIS 1+ (5-10/OIF) (0-5/OIF); BAND NEUTROPHILS 13 %; EOSINOPHILS 3 %; EOSINOPHILS ABSOLUTE (CALC) 0.27 10/3/uL (0.0-0.53); LYMPHOCYTES 7 %; LYMPHOCYTES ABSOLUTE (CALC) 0.64 10/3/uL (0.67-4.30); MONOCYTES 4 %; MONOCYTES ABSOLUTE (CALC) 0.36 10/3/uL (0.21-1.20); NEUTROPHILS ABSOLUTE (CALC) 7.83 10/3/uL (2.02-8.40); PLATELET ESTIMATE SLT DEC (ADEQUATE); SEGMENTED NEUTROPHIL (0) 73 %; TOTAL NUCLEATED CELLS 100
[2016-05-19 00:42] LABS: ALDOLASE 5.7 U/L (1.2-7.6)
[2016-05-19 17:26] LABS: BASOPHILS 0.1 %; BASOPHILS ABSOLUTE 0.01 10/3/uL (0.0-0.16); EOSINOPHILS 1.4 %; EOSINOPHILS ABSOLUTE 0.12 10/3/uL (0.0-0.53); HEMATOCRIT 29.2 % (36.0-48.0); HEMOGLOBIN 9.6 g/dL (12.0-16.0); IMMATURE GRANULOCYTES 1.7 %; IMMATURE GRANULOCYTES ABSOLUTE 0.14 10/3/uL (0.0-0.11); LYMPHOCYTES ABSOLUTE 0.42 10/3/uL (0.67-4.30); MEAN CORPUS HGB CONC 32.9 g/dL (32.0-36.0); MEAN CORPUSCULAR HEMOGLOB 30.7 pg (26.0-34.0); MEAN CORPUSCULAR VOLUME 93.3 fL (80-100); MEAN PLATELET VOLUME 10.3 fL (9.2-13.0); MONOCYTES 10.7 %; NEUTROPHILS 81.1 %; NEUTROPHILS ABSOLUTE 6.82 10/3/uL (2.02-8.40); RBC DISTRIBUTION WIDTH 17.2 % (12.0-16.0); RED CELL COUNT 3.13 10/6/uL (4.0-5.6); WHITE BLOOD CELLS 8.4 10/3/uL (4.5-10.5)
[2016-05-19 17:27] LABS: MANUAL DIFF NO %; PLATELET COUNT 186 10/3/uL (150-400)
[2016-05-19 17:39] LABS: ALBUMIN 1.9 G/DL (3.5-5.0); CHLORIDE, SERUM 102 MMOL/L (96-112); CO2 (CARBON DIOXIDE) 24 MMOL/L (24-34); POTASSIUM, SERUM 3.8 MMOL/L (3.5-5.3); SODIUM, SERUM 139 MMOL/L (135-148)
[2016-05-19 17:40] LABS: BUN (BLOOD UREA NITROGEN) 54 MG/DL (6-23); CREATININE 3.03 MG/DL (0.55-1.02); GFR AFRICAN AMERICAN 19 ML/MIN (>=60); GFR NON AFRICAN AMERICAN 17 ML/MIN (>=60)
[2016-05-19 17:41] LABS: CALCIUM, SERUM 7.8 MG/DL (8.5-10.4); GLUCOSE, SERUM 186 MG/DL (60-99)
[2016-05-20 05:30] LABS: ALBUMIN 2.2 G/DL (3.5-5.0); CALCIUM, SERUM 7.7 MG/DL (8.5-10.4); CHLORIDE, SERUM 104 MMOL/L (96-112); CO2 (CARBON DIOXIDE) 21 MMOL/L (24-34); GLUCOSE, SERUM 165 MG/DL (60-99); SGPT(ALT) 41 U/L (5-65); SODIUM, SERUM 140 MMOL/L (135-148)
[2016-05-20 05:31] LABS: A/G RATIO 0.5 (0.7-1.9); ALKALINE PHOSPHATASE 295 U/L (45-117); BUN (BLOOD UREA NITROGEN) 29 MG/DL (6-23); CREATININE 1.84 MG/DL (0.55-1.02); GFR AFRICAN AMERICAN 35 ML/MIN (>=60); GFR NON AFRICAN AMERICAN 30 ML/MIN (>=60); GLOBULIN 4.6 G/DL (2.5-4.1); PHOSPHORUS, SERUM 2.9 MG/DL (2.5-4.5); POTASSIUM, SERUM 5.2 MMOL/L (3.5-5.3); TOTAL PROTEIN 6.8 G/DL (6.0-8.5)
[2016-05-20 05:32] LABS: SGOT(AST) 40 U/L (5-40)
[2016-05-20 17:59] LABS: BE (BASE EXCESS) -9.1 MEQ/L (0 +/- 2.5); CARBOXYHEMOGLOBIN 0.3 % (0-3); HCO3 (ACTUAL BICARBONATE) 17.7 MEQ/L (23-27); HEMOBLOGIN CONTENT 10.8 G/DL (12-16); INSTRUMENT SERIAL # 35151; METHEMOGLOBIN 0.6 % (0-3); O2 CONTENT 13.9 VOL% (18-24); PCO2 (CO2 TENSION) 42 MMHG (35-45); PO2 (O2 TENSION) 76 MMHG (79-93); SAMPLE Arterial; TIDAL VOLUME 450 ML; pH 7.25 (7.37-7.43)
[2016-05-21 04:11] LABS: ACH RECEPTOR BINDING AB <0.30 nmol/L (<0.31)
[2016-05-21 19:19] LABS: ASPERGILLUS ANTIBODY BY CF <1:8 (()); BLASTOMYCES ANTIBODY BY CF <1:8 (()); COCCIDIOIDES AB BY CF <1:2 (()); HISTOPLASMA MYCELIA AB BY CF <1:8 (()); HISTOPLASMA YEAST AB BY CF <1:8 (())
== END 2016-05-20 20:31 | disposition expired | DRG 870 ==
LOC: ER 14:53 → MIC 19:53 → 2SO 05-03 15:19 → MIC 05-06 14:13 → 2SO 05-14 15:02 → CCU 05-20 03:01
PROVIDERS: Emergency Medicine; Internal Medicine; Internal Medicine Critical Care Medicine; Internal Medicine Nephrology; Nurse Practitioner; Registered Nurse; Surgery
DX: A40.9 Streptococcal sepsis, unspecified (principal); J96.01 Acute respiratory failure with hypoxia; J69.0 Pneumonitis due to inhalation of food and vomit; I13.2 Hypertensive heart and chronic kidney disease with heart failure and with stage 5 chronic kidney disease, or end stage renal disease; G93.40 Encephalopathy, unspecified; J15.4 Pneumonia due to other streptococci; J44.0 Chronic obstructive pulmonary disease with (acute) lower respiratory infection; A04.7 Enterocolitis due to Clostridium difficile; N18.6 End stage renal disease; I46.9 Cardiac arrest, cause unspecified; D68.9 Coagulation defect, unspecified; E46 Unspecified protein-calorie malnutrition; I48.92 Unspecified atrial flutter; I50.42 Chronic combined systolic (congestive) and diastolic (congestive) heart failure; I95.9 Hypotension, unspecified; E11.40 Type 2 diabetes mellitus with diabetic neuropathy, unspecified; K31.84 Gastroparesis; J38.01 Paralysis of vocal cords and larynx, unilateral; E11.22 Type 2 diabetes mellitus with diabetic chronic kidney disease; E03.9 Hypothyroidism, unspecified; I73.9 Peripheral vascular disease, unspecified; Z89.512 Acquired absence of left leg below knee; Z99.2 Dependence on renal dialysis; R65.20 Severe sepsis without septic shock; E11.43 Type 2 diabetes mellitus with diabetic autonomic (poly)neuropathy; R13.10 Dysphagia, unspecified; G72.89 Other specified myopathies; R53.1 Weakness; R11.14 Bilious vomiting; G89.29 Other chronic pain; Z86.73 Personal history of transient ischemic attack (TIA), and cerebral infarction without residual deficits; D64.9 Anemia, unspecified; J10.1 Influenza due to other identified influenza virus with other respiratory manifestations; E78.00 Pure hypercholesterolemia, unspecified; Z87.891 Personal history of nicotine dependence; Z66 Do not resuscitate; I48.0 Paroxysmal atrial fibrillation; D69.6 Thrombocytopenia, unspecified; R56.9 Unspecified convulsions; Z68.25 Body mass index [BMI] 25.0-25.9, adult
CPT/HCPCS: 31720; 36415; 36569; 36600; 70551; 71010; 71250; 72100; 74000; 74176; 76700; 76705; 80048; 80053; 80069; 80202; 82085; 82140; 82272; 82330; 82533; 82550; 82607; 82803; 82805; 82947; 82962; 83519; 83605; 83735; 83880; 84100; 84132; 84134; 84145; 84295; 84439; 84443; 84450; 84460; 84481; 84484; 85014; 85025; 85610; 85652; 85730; 86022; 86606; 86612; 86635; 86698; 86698-59; 86850; 86900; 86901; 86920; 87040; 87070; 87077; 87150; 87186; 87205; 87449; 87493; 87493-59; 87641; 87804; 92610-GN; 92950; 93005; 94002; 94003; 94640; 94644; 94660; 94667; 94668; 96365; 96368; 97162-GP; 97164-GP; 97166-GO; 99291; A9270-GY; C1751; C1894; C9113; G0257; J0282; J0610; J0885; J1953; J1956; J2370; J2405; J2543; J2710; J2765; J2920; J2997; J3010; J3370; P9016; P9045; P9047; P9059